=== PATIENT | male | born 1990 | race African-American/Black ===

== ENCOUNTER 2025-11-17 18:45 | Emergency (ER) | payer OTHER, SELFPAY ==
--- OUTSIDE RECORDS SUMMARY | 2023-08-28 10:47 | XMS_ITS | Continuity of Care Document ---
Author Organization [facility] ([facility]) Encounters Encounter Type Service Location Arrival/Admit Date Discharge/Depart Date Discharge Disposition Informant Emergency department visit for the evaluation and management of a patient, high severity Unknown 08/28/2023 15:47:02 [facility] - - [facility] Problem List Start Date End Date Condition Code Condition Name Condition Text Problem Category Problem Text Status Informant - - - LFT KNEE PAIN LFT KNEE PAIN - encounter -diagnosi s [facility]
--- OUTSIDE RECORDS SUMMARY | 2025-05-16 01:30 | XMS_ITS | Encounter Summary ---
Author Name [facility] [facility] [place] [facility] [place] Address [address] [place] [address] Care Team Providers Care Cardiology Nurse Practitioner Name Role Phone ADOLPH TATE Primary Care Provider DOMO Holt Primary Care Provider Yarely acosta Selected Encounter This section includes the information on record at [place] for the Encounter. Date/Time Encounter Type Encounter Description Reason Provider Source May 16, 2025 06:30 AM EMERGENCY DEPT VISIT [facility] EMERGENCY DEPT ICD-10-CM R22.31 Localized swelling, mass and lump, right upper limb POWERS,JIN E IHE Encounter Template Text not used by [place] Assessments - Encounter Diagnoses This section includes the primary and secondary diagnoses documented for the Encounter. Date/Time Primary/Secondary Diagnosis Diagnosis Name Provider Source May 16, 2025 08:03 AM PRIMARY Localized swelling, mass and lump, right upper limb POWERS,JIN E HARRY GUERRA [facility] Plan of Treatment: Future Appointments (+ 6 months) and Future Tests (+/- 45 days) The Plan of Treatment section includes future care activities for the patient from all [place] treatmentfacilities. This section includes future appointments and future orders which are active, pending or scheduled. Future Appointments This section includes appointments that were scheduled to occur 6 months from the date of the Encounter, up to a maximum of 20 appointments. The data comes from all [place] treatment facilities. Appointment Date/Time Appointment Type Appointme nt Facility Name May 17, 2025 10:15 AM AMBULATORY - MEDICINE [facility] Jun 01, 2025 12:30 PM AMBULATORY - MEDICINE [facility] Jul 28, 2025 01:30 PM AMBULATORY - SURGERY [facility] Sep 02, 2025 09:00 AM AMBULATORY [facility] Sep 08, 2025 01:30 PM AMBULATORY - SURGERY [facility] Vital Signs: All taken on the encounter date This section contains inpatient and outpatient Vital Signs collected on the date of the Encounter. Date/Time Temperature Pulse Blood Pressure Respiratory Rate SP02 Pain Height Weight Body Mass Index Source May 16, 2025 06:35 AM 8 [facility] May 16, 2025 06:28 AM 97 F 77 /min 138/93 mm[Hg] 18 /min 97 % 7 66 in 206 lb 33 [facility] Advance Directives: All historical and current Section Date Range: From patient's date of to the date document was created. This section includes ALL of a patient's completed or amended [place] Advance and Rescinded Directives. The entries below indicate that a directive exists for the patient, but an actual copy is not included with this document. The data comes from all [facility]. Date Advance Directives Provider Source Dec 13, 2022 ADVANCE DIRECTIVE DISCUSSION LAMBERTO TAMAYO [facility] Jan 31, 2020 ADVANCE DIRECTIVE DISCUSSION ALEXUS ROSSI [facility] Radiology Reports: +/- 30 days of the encounter Radiology Reports For cases when an order for radiology services may have been completed prior to the date of the Encounter, the report list includes the Radiology Reports that were completed up to 30 days before dateof the Encounter. For cases when an order for radiology services may have been completed after the date of the Encounter, the report list also includes the Radiology Reports that were completed up to30 days after date of the Encounter. The data comes from all [place] treatment facilities. Date/Time Radiology Report Provider Source May 17, 2025 11:22 AM WRIST: RIGHT (3 EWS): TEJA MERRILL [id number] -1990 M Exm Date: MAY 17, 2025@11:22 Req Phys: TIMO GREEN Loc: [facility]-EMERGENCY DEPARTMENT (Req' Img Loc: [facility]-RADIOLOGY Service: Unknown [facility] [place] [address] (Case [id number] COMPLETE)WRIST: RIGHT (3 VIEWS) (RAD Detailed) CPT:52962 Reason for Study: SEE BELOW: Clinical History: 1.FIRST PROVIDE CLINICAL HX and REASON FOR EXAM (LIMIT 240 Chars)>>> atraumatic wrist pain/swelling 2.ORDERING PROVIDER: NAME: TIMO GREEN SERVICE/SECTION: EMERGENCY MEDICINE PHONE EXT: [phone] [place] PAGER: ONEIDA PAGER: OTHER PAGER(S): 3.IF YOU WILL NOT BE AVAILABLE and/or another physician should also receive the results please enter the additional contact information below: PATIENT'S PRIMARY PHYSICIAN: pager: phone: DEFER To Radiologist for final protocol?....: Yes Examples: Contrast VS Non-Contrast, Left VS Right, correct body parts, correct modality, and any other relevant protocol details. [ ] Check this box if you authorize radiology staff to review the results of this study with the patient prior to results being reported back to you. * ALL INFO IS MANDATORY Incomplete requests are automatically cancelled. Report Status: Verified Date Reported: MAY 17, 2025 Date Verified: MAY 17, 2025 Joint Finisher E-Sig:/ES/ROHIT WILKINS MD. Report: Comparison: 11/11/23 TECHNIQUE: AP, lateral and oblique views of the right wrist submitted FINDINGS: Same as impression Impression: Soft tissue swelling, predominantly over the ulnar styloid process and medial aspect of the wrist joint. Minimal cortical irregularity of ulnar styloid process and lateral aspect of the scaphoid bone may indicate early erosive change. Recommend clinical correlation. 4 mm well-defined radiolucency of triquetrum, possible intraosseous ganglion. No other bony lesions. No acute fracture. No malalignment. Primary Diagnostic Code: SIGNIFICANT ABNORMALITY, ATTN NEEDED Primary Interpreting Staff: ROHIT WILKINS MD., ATTENDING RADIOLOGIST (Joint Finisher) /ROHIT BAI [facility] Encounter Notes: All associated encounter notes This section contains the clinical notes associated to the Encounter. Date/Time Encounter Note(s) Provider Source May 16, 2025 07:58 AM EMERGENCY DEPT NOT E: LOCAL TITLE: EMERGENCY DEPT FAST TRACK NOTE STANDARD TITLE: EMERGENCY DEPT NOTE DATE OF NOTE: MAY 16, 2025@07:58 ENTRY DATE: MAY 16, 2025@07:58:10 AUTHOR: JIN POWERS COSIGNER: URGENCY: STATUS: COMPLETED RN and Triage Notes Reviewed Patient or surrogate has given consent for examinations, including labs, imaging, other diagnostic procedures. Consent is otherwise implied in an emergent clinical situation CHIEF COMPLAINT: ganglion cyst HPI: 34M RHD with R wrist lump x couple weeks. went to [place] and informed ganglion cyst. requesting that it be removed as causing more pain. no systemic symptoms able to move wrist w/o difficulty no hand pain SOCIAL Hx/FAMILY Hx, if applicable: PMHx: ACTIVE PROBLEMS Moderate recurrent major depression Exposure to potentially hazardous s Gout Wrist pain Pain of bilateral knee regions MEDS:Active Outpatient Medications (excluding Supplies): No Medications Found REMOTE MEDS, if applicable: No Active Remote Medications for this patient OTC / SUPPLEMENTAL / NON-VA MEDS, if applicable: ALLERGIES: Patient has answered NKA VITALS: T: 97 F [36.1 C] (05/16/2025 06:28) P: 77 (05/16/2025 06:28) R: 18 (05/16/2025 06:28) BP:138/93 (05/16/2025 06:28) Pain: 8 (05/16/2025 06:35) Pulse Ox: 97% (05/16/2025 06:28) Ht: 66 in [167.6 cm] (05/16/2025 06:28) Wt: 206 lb [93.44 kg] (05/16/2025 06:28) BMI:33.3 PHYSICAL EXAM: GEN: Well-appearing, no apparent distress RUE: elbow/wrist/full ROM, no effusion, no ttp hand SILT to median/radial/ulnar n. dist thumbs up, opposition, finfer crossing intact dorsal aspect ~ 2 cm from wrist with flucutulant mass. no warmth/no erythema. some tenderness a/p 34M RHD with Right ganglion cyst x several weeks. no e/o abscess. After d/w patient regarding options he is requesting that it be aspirated for comfort. aspiration performed w/o complication. Will refer to hand surgery to consider excision. Procedure: Consent Verbal Prep: Chloraprep Anesthesia: Lidocaine 1% with epi 0.5 cc After prep/anesthesia 18 gauge needle was inserted into are of fluctulance with 1 cc clear fluid aspirated bandaid applied with MARY wrap /es/ JIN POWERS M.D. EMERGENCY MEDICINE ATTENDING PHYSICIAN Signed: 05/16/2025 14:11 JIN POWERS [facility] May 16, 2025 06:31 AM TRIAGE NOTE: LOCAL TITLE: EMERGENCY DEPT NURSING TRIAGE NOTE STANDARD TITLE: TRIAGE NOTE DATE OF NOTE: MAY 16, 2025@06:31 ENTRY DATE: MAY 16, 2025@06:31:10 AUTHOR: SCOTTY MILLER EXP COSIGNER: URGENCY: STATUS: COMPLETED Emergency Department/Urgent Care Center Triage Patient age:34 Sex in chart: MALE Mode of Arrival: Self Mode of Mobility: * Walk Chief Complaint: worsening pain/ ganglion cyst to R wrist for the past 24 hours. packing tractor machine operator Note (Subjective/Objective): Pt presents to the ED with the above complaint,states he's been taking tylenol with little to no relief,wrist brace in placed for comfort,AOx4,ambulatory,no distress.Denies n/v/d,fever and chills. Level of Consciousness (AVPU): Alert = Appears aware of and responsive to the environment on their own. Follows commands, opens eyes spontaneously, and tracks objects. Vital Signs: Vital signs previously recorded this visit: T: 97 F [36.1 C] (05/16/2025 06:28) P: 77 (05/16/2025 06:28) R: 18 (05/16/2025 06:28) BP: 138/93 (05/16/2025 06:28) Pain: 7 (05/16/2025 06:28) Pulse Ox: 97% (05/16/2025 06:28) National Early Warning Score (NEWS): The NEWS total is 0. 1. Temperature (C/F): Score = 0 36.1 - 38.0 C (96.9 - 100.4 F) 2. Pulse: Score = 0 51-90 3. Respirations: Score = 0 12-20 4. Blood Pressure (Only Systolic BP, mmHg): Score = 0 111-219 5. Pulse Oximetry: Score = 0 96% or greater 6. Supplemental oxygen in use: Score = 0 No 7. AVPU: Score = 0 Alert Pain: DVPRS Scale Location: right wrist Defense and Veterans Pain Rating Scale (DVPRS): 8 Awful, hard to do anything Pain Score: 8 Patient's acceptable pain goal: 0 No pain Suicide Screen: [place] Suicide Severity Rating Scale (C-SSRS) screener 1. Over the past month, have you wished you were or wished you could go to sleep and not wake up? No 2. Over the past month, have you had any actual thoughts of killing yourself? No 3. Over the past month, have you been thinking about how you might do this? Response not required due to responses to other questions. 4. Over the past month, have you had these thoughts and had some intention of acting on them? Response not required due to responses to other questions. 5. Over the past month, have you started to work out or worked out the details of how to kill yourself? Response not required due to responses to other questions. 6. If yes, at any time in the past month did you intend to carry out this plan? Response not required due to responses to other questions. 7. In your lifetime, have you ever done anything, started to do anything, or prepared to do anything to end your life (for example, collected pills, obtained a gun, gave away valuables, went to the roof but didn't jump)? No 8. If YES, was this within the past 3 months? Response not required due to responses to other questions. Emergency Severity Index (ELLE) level: Level 4 Previously documented allergies: Patient has answered NKA Current Problems: ACTIVE PROBLEMS Moderate recurrent major depression Exposure to potentially hazardous s Gout Wrist pain Pain of bilateral knee regions /es/ SCOTTY MILLER BSN,RN EMERGENCY DEPARTMENT Signed: 05/16/2025 06:36 SCOTTY MILLER [facility]
--- OUTSIDE RECORDS SUMMARY | 2025-05-17 05:15 | XMS_ITS | Encounter Summary ---
Author Name [facility] [place] [facility] [place] Organization [facility] [place] Address [address], [place] [address] Care Team Providers Care Metal Fabricating Inspector Name Role Phone ADOLPH TATE Primary Care Provider DOMO Holt Primary Care Provider Yarely acosta Selected Encounter This section includes the information on record at [place] for the Encounter. Date/Time Encounter Type Encounter Description Reason Provider Source May 17, 2025 10:15 AM [facility] DEPT [facility] ICD-10-CM M25.539 Pain in unspecified wrist TIMO VARGAS Encounter Template Text not used by [place] Assessments - Encounter Diagnoses This section includes the primary and secondary diagnoses documented for the Encounter. Date/Time Primary/Secondary Diagnosis Diagnosis Name Provider Source May 17, 2025 12:35 PM PRIMARY Pain in unspecified wrist TIMO VARGAS [facility] Plan of Treatment: Future Appointments (+ 6 months) and Future Tests (+/- 45 days) The Plan of Treatment section includes future care activities for the patient from all [place] treatmentfacilities. This section includes future appointments and future orders which are active, pending or scheduled. Future Appointments This section includes appointments that were scheduled to occur 6 months from the date of the Encounter, up to a maximum of 20 appointments. The data comes from all [place] treatment facilities. Appointment Date/Time Appointment Type Appointme nt Facility Name Jun 01, 2025 12:30 PM AMBULATORY - MEDICINE [facility] Jul 28, 2025 01:30 PM AMBULATORY - SURGERY [facility] Sep 02, 2025 09:00 AM AMBULATORY [facility] Sep 08, 2025 01:30 PM AMBULATORY - SURGERY [facility] Vital Signs: All taken on the encounter date This section contains inpatient and outpatient Vital Signs collected on the date of the Encounter. Date/Time Temperature Pulse Blood Pressure Respiratory Rate SP02 Pain Height Weight Body Mass Index Source May 17, 2025 10:36 AM 98.7 F 60 /min 151/91 mm[Hg] 18 /min 100 % 10 210.5 lb 34 [facility] Advance Directives: All historical and current Section Date Range: From patient's date of to the date document was created. This section includes ALL of a patient's completed or amended [place] Advance and Rescinded Directives. The entries below indicate that a directive exists for the patient, but an actual copy is not included with this document. The data comes from all [place] facilities. Date Advance Directives Provider Source Dec 13, 2022 ADVANCE DIRECTIVE DISCUSSION LAMBERTO TAMAYO [facility] Jan 31, 2020 ADVANCE DIRECTIVE DISCUSSION ALEXUS ROSSI [facility] Radiology Reports: +/- 30 days of the [...] the Encounter. The data comes from all [place] treatment facilities. Date/Time Radiology Report Provider Source May 17, 2025 11:22 AM WRIST: RIGHT (3 EWS): TEJA MERRILL [id number] -1990 M Exm Date: MAY 17, 2025@11:22 Req Phys: TIMO VARGAS Loc: [facility]-EMERGENCY DEPARTMENT (Req' Img Loc: [facility]-RADIOLOGY Service: Unknown [facility] [place] [address] (Case [id number] COMPLETE)WRIST: RIGHT (3 VIEWS) (RAD Detailed) CPT:64119 Reason for Study: SEE BELOW: Clinical History: 1.FIRST PROVIDE CLINICAL HX and REASON FOR EXAM (LIMIT 240 Chars)>>> atraumatic wrist pain/swelling 2.ORDERING PROVIDER: NAME: TIMO VARGAS SERVICE/SECTION: EMERGENCY MEDICINE PHONE EXT: [phone] [place] PAGER: ONEIDA PAGER: OTHER PAGER(S): 3.IF YOU [...] 17, 2025 Date Verified: MAY 17, 2025 Script Girl E-Sig:/ES/MEL WILKINS MD. Report: Comparison: 11/11/23 TECHNIQUE: AP, [...] SIGNIFICANT ABNORMALITY, ATTN NEEDED Primary Interpreting Staff: MEL WILKINS MD., ATTENDING RADIOLOGIST (Script Girl) /MEL BAI [facility] Encounter Notes: All associated encounter notes This section contains the clinical notes associated to the Encounter. Date/Time Encounter Note(s) Provider Source May 17, 2025 11:15 AM EMERGENCY DEPT NOT E: LOCAL TITLE: EMERGENCY DEPT MEDICATIONS STANDARD TITLE: EMERGENCY DEPT NOTE DATE OF NOTE: MAY 17, 2025@11:15 ENTRY DATE: MAY 17, 2025@11:15:09 AUTHOR: MARI MULLINS EXP COSIGNER: URGENCY: STATUS: COMPLETED Date and Time Med/IV Given: Apr@11:15 Medication/IV Fluid: toradol Dose/Rate: 15 Unit of Measure: Mg Route: IM /es/ Mari Mullins RN, BSN REGISTERED NURSE Signed: 05/17/2025 11:15 MARI MULLINS [facility] May 17, 2025 10:42 AM EMERGENCY DEPT NOT E: LOCAL TITLE: EMERGENCY DEPT FAST TRACK NOTE STANDARD TITLE: EMERGENCY DEPT NOTE DATE OF NOTE: MAY 17, 2025@10:42 ENTRY DATE: MAY 17, 2025@10:42:30 AUTHOR: TIMO VARGAS EXP COSIGNER: URGENCY: STATUS: COMPLETED RN and Triage Notes Reviewed Pt gave consent for the examinations (including labs, imaging, other diagnostic procedures) herein included Patient PPE during exam: Surgical mask Provider PPE during exam: Surgical mask, gloves CHIEF COMPLAINT: Right wrist pain HPI: 34-year-old male with PMH of gout presenting today for persistent right- sided wrist pain. He was recently diagnosed at [place] with ganglion cyst. He was then seen in this department and cyst aspiration was performed. He states that since that time his wrist pain has persisted and possibly worsening. He feels pain spreading throughout the wrist joint which is severely limiting his range of motion. No noted trauma. No redness or skin changes noted. He does feel that there is a mild amount of swelling. He has been using Tylenol and Eric wrap as recommended. PMHx: ACTIVE PROBLEMS Moderate recurrent major depression Exposure to potentially hazardous s Gout Wrist pain Pain of bilateral knee regions PSHx: Non-contributory FHx: Non-contributory SHx: 03/30/2024 Negative - Has No Housing Concerns Negative - Has Stable Housing MEDS (All medications have been reconciled with the patient including OTC and CAM Medications): Active Outpatient Medications (excluding Supplies): No Medications Found MEDICATION RECONCILLATION: I have reviewed the patient's outpatient medication with the patient/caregiver and the list above accurately reflects the medications that the patient is currently taking including any that may be provided from non-VA sources, over the counter medications, nutritional or other supplements ALLERGIES: Patient has answered NKA PHYSICAL EXAMINATION T:98.7 F [37.1 C] (05/17/2025 10:36) BP:151/91 (05/17/2025 10:36) HR:60 (05/17/2025 10:36) R:18 (05/17/2025 10:36) O2 Sat:100% (05/17/2025 10:36) PHYSICAL EXAMINATION: GEN: Well apearing, NAD HEENT: conjunctiva clear Neck: supple, no masses Chest: Unlabored respirations CV: Normal perfusion Ext: Right wrist with no gross deformity. 1.5X 1.5 cm nodular mass on the ulnar aspect of the wrist with overlying punctate scar from recent procedure. No surrounding erythema or focal TTP in this area. Generalized soft tissue TTP, but no focal bony TTP. SI LT, 2+ radial pulse, intact TU/FC/okay. Possible very trace joint effusion versus soft tissue edema appreciated Neuro: Awake and alert, oriented to exam, clear speech, CLINICAL REMINDERS FINDINGS OUD and Naloxone Review (blank = negative screen) Most Recent Naloxone Prescription Information: No prior Naloxone prescription was found. XR R Wrist: Soft tissue swelling, predominantly over the ulnar styloid process and medial aspect of the wrist joint. Minimal cortical irregularity of ulnar styloid process and lateral aspect of the scaphoid bone may indicate early erosive change. Recommend clinical correlation. 4 mm well-defined radiolucency of triquetrum, possible intraosseous ganglion. No other bony lesions. No acute fracture. No malalignment. ED MEDICAL DECISION-MAKING/ED COURSE: 34-year-old man presenting today for persistent right-sided wrist pain. No evidence of fracture or dislocation based on my exam and imaging. Possibly due to his known ganglion cyst however he has significant pain with range of motion. Low concern for postprocedure cellulitis given no overlying skin changes. Concern for possible arthritis given his significant pain with ROM and soft tissue swelling appreciated on imaging. Most consistent with patient's known history of gout. Considered pseudogout, septic arthritis, and other inflammatory conditions. Offered patient wrist joint aspiration for further evaluation. He demonstrated capacity for decision-making and declined. He prefers to trial his usual gout regimen and monitor his own symptoms. Colchicine and indomethacin prescribed similar to patient's prior regimen. After discussion with shared decision making patient deemed to be stable for discharge with strict return precautions and close outpatient follow-up. All questions answered. Provided with pre-printed aftercare instructions upon discharge. ED DIAGNOSTIC IMPRESSION: wrist pain /es/ Timo Vargas MD EMERGENCY MEDICINE ATTENDING PHYSICIAN Signed: 05/17/2025 12:30 TIMO VARGAS [facility] May 17, 2025 10:39 AM TRIAGE NOTE: LOCAL TITLE: EMERGENCY DEPT NURSING TRIAGE NOTE STANDARD TITLE: TRIAGE NOTE DATE OF NOTE: MAY 17, 2025@10:39 ENTRY DATE: MAY 17, 2025@10:40:05 AUTHOR: RAFAL PETERSON EXP COSIGNER: URGENCY: STATUS: COMPLETED Emergency Department/Urgent Care Center Triage Patient age:34 Sex in chart: MALE Mode of Arrival: Self Mode of Mobility: * Walk Chief Complaint: follow-up from yesterday s/p drainage to ganglion cyst. 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 Follows commands, opens eyes spontaneously, and tracks objects. Vital Signs: Vital signs previously recorded this visit: T: 98.7 F [37.1 C] (05/17/2025 10:36) P: 60 (05/17/2025 10:36) R: 18 (05/17/2025 10:36) BP: 151/91 (05/17/2025 10:36) Pain: 10 (05/17/2025 10:36) Pulse Ox: 100% (05/17/2025 10:36) National Early Warning Score (NEWS): The NEWS [...] = 0 Alert Pain: DVPRS Scale Location: arm Defense and Veterans Pain Rating Scale (DVPRS): Patient's acceptable pain goal: Suicide Screen: [place] Suicide Severity Rating Scale (C-SSRS) screener 1. [...] questions. Emergency Severity Index (ELLE) level: Level 3 Previously documented allergies: Patient has answered NKA Current Problems: ACTIVE PROBLEMS Moderate recurrent major depression Exposure to potentially hazardous s Gout Wrist pain Pain of bilateral knee regions /natalio/ RAFAL PETERSON, MSN, SUPERVISOR PRODUCT INSPECTION NURSE - EMERGENCY DEPT Signed: 05/17/2025 10:42 RAFAL PETERSON [facility]
--- OUTSIDE RECORDS SUMMARY | 2025-05-17 06:02 | XMS_ITS | Encounter Summary ---
Author Name [facility] [place] Organization [facility] [place] Address [address] [place] [address] Care Team Providers Care Boat Buffer Plastic Name Role Phone ADOLPH TATE Primary Care Provider DOMO Holt Primary Care Provider Yarely acosta Selected Encounter This section includes the information on record at MD for the Encounter. Date/Time Encounter Type Encounter Description Reason Provider Source May 17, 2025 11:02 AM Outpatient Encounter ADMIN PAT ACTIVTIES (MASNONCT) JIN POWERS Encounter Template Text not used by MD Plan of Treatment: Future Appointments (+ 6 months) and Future Tests (+/- 45 days) The Plan of Treatment section includes future care activities for the patient from all [place] treatmentfacilities. This section includes future appointments and future orders which are active, pending or scheduled. Future Appointments This section includes appointments that were scheduled to occur 6 months from the date of the Encounter, up to a maximum of 20 appointments. The data comes from all [place] treatment facilities. Appointment Date/Time Appointment Type Appointme nt Facility Name Jun 01, 2025 12:30 PM AMBULATORY - MEDICINE [facility] Jul 28, 2025 01:30 PM AMBULATORY - SURGERY [facility] Sep 02, 2025 09:00 AM AMBULATORY [facility] Sep 08, 2025 01:30 PM AMBULATORY - SURGERY [facility] Vital Signs: All taken on the encounter date This section contains inpatient and outpatient Vital Signs collected on the date of the Encounter. Date/Time Temperature Pulse Blood Pressure Respiratory Rate SP02 Pain Height Weight Body Mass Index Source May 17, 2025 10:36 AM 98.7 F 60 /min 151/91 mm[Hg] 18 /min 100 % 10 210.5 lb 34 [facility] Advance Directives: All historical and current Section Date Range: From patient's date of to the date document was created. This section includes ALL of a patient's completed or amended MD Advance and Rescinded Directives. The entries below indicate that a directive exists for the patient, but an actual copy is not included with this document. The data comes from all MD facilities. Date Advance Directives Provider Source Dec 13, 2022 ADVANCE DIRECTIVE DISCUSSION LAMBERTO TAMAYO [facility] Jan 31, 2020 ADVANCE DIRECTIVE DISCUSSION ALEXUS ROSSI [facility] Radiology Reports: +/- 30 days [...] the Encounter. The data comes from all MD treatment facilities. Date/Time Radiology Report Provider Source May 17, 2025 11:22 AM WRIST: RIGHT (3 EWS): TEJA MERRILL [id number] -1990 M Exm Date: MAY 17, 2025@11:22 Req Phys: TIMO GREEN Pat Loc: [facility]-EMERGENCY DEPARTMENT (Req' Img Loc: [facility]-RADIOLOGY Service: Unknown [facility] [place] [address] (Case [id number] COMPLETE)WRIST: RIGHT (3 VIEWS) (RAD Detailed) CPT:68431 Reason for Study: SEE BELOW: Clinical History: 1.FIRST PROVIDE CLINICAL HX and REASON FOR EXAM (LIMIT 240 Chars)>>> atraumatic wrist pain/swelling 2.ORDERING PROVIDER: NAME: TIMO GREEN SERVICE/SECTION: EMERGENCY MEDICINE PHONE EXT: [phone] MD PAGER: [facility] PAGER: OTHER PAGER(S): 3.IF YOU WILL NOT [...] 17, 2025 Date Verified: MAY 17, 2025 Technician Trainee E-Sig:/ES/ROHIT WILKINS MD. Report: Comparison: 11/11/23 TECHNIQUE: [...] Interpreting Staff: ROHIT WILKINS MD., ATTENDING RADIOLOGIST (Technician Trainee) /ROHIT BAI [facility] Encounter Notes: All associated encounter notes This section contains the clinical notes associated to the Encounter. Date/Time Encounter Note(s) Provider Source May 17, 2025 11:02 AM LETTERS: LOCAL TITLE: APPOINTMENT SCHEDULING LETTER AUTO PRINT STANDARD TITLE: LETTERS DATE OF NOTE: MAY 17, 2025@11:02 ENTRY DATE: MAY 17, 2025@11:02:48 AUTHOR: YAZMIN MCGEE EXP COSIGNER: URGENCY: STATUS: COMPLETED MAY 17, 2025 Dear TEJA MERRILL, We have received an appointment request for you in the clinic listed below and would like to schedule your appointment for you as soon as possible. Clinic: [facility]ORTHOPEDICS If you have already scheduled an appointment with this service, please disregard this letter We attempted to contact you by phone, but unfortunately we were not able to reach you. Please contact our office between the hours of 8:00am to 4:00pm toll free at [place] [phone]. If we do not hear from you within 14 days of the date of this letter, we will cancel your appointment request and offer the appointment to another . If you feel you need to be seen after the 14 days have passed for the service in question, please reach out and we would be happy to coordinate your care. PLEASE NOTE: Prescriptions may not be given unless you are seen by a MD Provider. We want to thank you for choosing the [facility] to be your healthcare provider. We appreciate the opportunity to serve your healthcare needs. If at any time, you do not feel safe and need urgent care, you may call 911, go to the nearest emergency room, or call the [place] Crisis Line at [phone]. Sincerely, [place] [address] [place] [address] UMAIR MCGEE [facility] [place]
--- OUTSIDE RECORDS SUMMARY | 2025-05-30 08:16 | XMS_ITS | Encounter Summary ---
Author Name [facility] [place] Organization [place] Address [address] [place] [address] Care Team Providers Care Slice Cutting Machine Operator Helper Name Role Phone ADOLPH TATE Primary Care Provider DOMO Holt Primary Care Provider Yarely acosta Selected Encounter This section includes the information on record at [place] for the Encounter. Date/Time Encounter Type Encounter Description Reason Pro vider Source May 30, 2025 01:16 PM Outpatient Encounter ADMIN PAT ACTIVTIES (MASNONCT) IHE Encounter Template Text not used by [place] Plan of Treatment: Future Appointments (+ 6 months) and Future Tests (+/- 45 days) The Plan of Treatment section includes future care activities for the patient from all [place] treatmentfacilities. This section includes future appointments and future orders which are active, pending or scheduled. Future Appointments This section includes appointments that were scheduled to occur 6 months from the date of the Encounter, up to a maximum of 20 appointments. The data comes from all [place] treatment facilities. Appointment Date/Time Appointment Type Appointme nt Facility Name Jun 01, 2025 12:30 PM [facility] Jul 28, 2025 01:30 PM [facility] [place] Sep 02, 2025 09:00 AM AM[facility]ULATORY [facility] Sep 08, 2025 01:30 PM [facility] Nov 30, 2025 09:30 AM AMB[facility]ORY - MEDICINE [facility] Advance Directives: All historical and current Section Date Range: From patient's date of to the date document was created. This section includes ALL of a patient's completed or amended [place] Advance and Rescinded Directives. The entries below indicate that a directive exists for the patient, but an actual copy is not included with this document. The data comes from all [place] facilities. Date Advance Directives Provider Source Dec 13, 2022 ADVANCE DIRECTIVE DISCUSSION LAMBERTO TAMAYO [facility] Jan 31, 2020 ADVANCE DIRECTIVE DISCUSSION ALEXUS ROSSI [facility] Radiology Reports: +/- 30 days [...] the Encounter. The data comes from all [place] treatment facilities. Date/Time Radiology Report Provider Source May 17, 2025 11:22 AM WRIST: RIGHT (3 EWS): JASPREET MERRILLUZIEL PHILLIPS [id number] -1990 M Exm Date: MAY 17, 2025@11:22 Req Phys: TIMO GREEN Loc: [facility]-EMERGENCY DEPARTMENT (Req' Img Loc: [facility]-RADIOLOGY Service: [place] [address] (Case [id number] COMPLETE)WRIST: RIGHT (3 VIEWS) (RAD Detailed) CPT:53856 Reason for Study: SEE BELOW: Clinical History: 1.FIRST PROVIDE CLINICAL HX and REASON FOR EXAM (LIMIT 240 Chars)>>> atraumatic wrist pain/swelling 2.ORDERING PROVIDER: NAME: TIMO GREEN SERVICE/SECTION: EMERGENCY MEDICINE PHONE EXT: [phone] [place] PAGER: [facility] PAGER: OTHER PAGER(S): 3.IF YOU WILL NOT [...] 17, 2025 Date Verified: MAY 17, 2025 [employer] E-Sig:/ES/ROHIT WILKINS MD. Report: Comparison: 11/11/23 TECHNIQUE: [...] Interpreting Staff: ROHIT WILKINS MD., ATTENDING RADIOLOGIST ([employer]) /ROHIT BAI [facility] Encounter Notes: All associated encounter notes This section contains the clinical notes associated to the Encounter. Date/Time Encounter Note(s) Provider Source May 30, 2025 01:16 PM PRIMARY CARE TELEP JAGDISH ENCOUNTER NOTE: LOCAL TITLE: PRIMARY CARE TELEPHONE NOTE STANDARD TITLE: PRIMARY CARE TELEPHONE ENCOUNTER NOTE DATE OF NOTE: MAY 30, 2025@13:16 ENTRY DATE: MAY 30, 2025@13:16:28 AUTHOR: EMERSON DUFFY EXP COSIGNER: URGENCY: STATUS: COMPLETED Time Spent with Patient/Caregiver on the telephone: 5 minutes Appointment date: 06/01/2025 12:30 SGV-PACT TEAM 4 Spoke with: [x]Willard []Manager Technical Training []Spouse []Family member []Other Visit Type: []Another attempt to call and confirm appointment will be made prior to scheduled appointment date. []3rd and Final attempt for appointment date/time confirmation was made [x]Willard will be able to attend appointment and verbalized understanding of instructions given. [x]Awsa-rr-evhd PCP Visit []Telephonic/VVC PCP visit []Cfir-yn-nlpl Nurse visit []Telephonic/VVC Nurse visit Topics of discussion with Willard: [x]Appointment date/time/location [x]Complete all fasting/non-fasting lab work within 1-2 weeks of upcoming appointment or on the day of the appointment if not already complete. []Other /natalio/ EMERSON DUFFY LICENSED VOCATIONAL NURSE Signed: 05/30/2025 13:17 EMERSON DUFFY [facility]
--- OUTSIDE RECORDS SUMMARY | 2025-06-01 07:30 | XMS_ITS | Encounter Summary ---
Author Name [facility] [place] Organization [place] Address [address] [place] [address] Care Team Providers Care Cattle Driver Name Role Phone ADOLPH TATE Primary Care Provider KLEVER Holt Primary Care Provider Yarely acosta Selected Encounter This section includes the information on record at [place] for the Encounter. Date/Time Encounter Type Encounter Description Reason Provider Source Jun 01, 2025 12:30 PM OFFICE O/P EST MOD 30 MIN PRIMARY CARE/MEDICINE ICD-10-CM M10.9 Gout, unspecified GRODECKI,GUIRL ETTE IHE Encounter Template Text not used by [place] Assessments - Encounter Diagnoses This section includes the primary and secondary diagnoses documented for the Encounter. Date/Time Primary/Secondary Diagnosis Diagnosis Name Provider Source Jun 01, 2025 01:44 PM PRIMARY Gout, unspecified GRODECKI,GUIRL ETTE [facility] Jun 01, 2025 01:44 PM SECONDARY Pain in left knee GRODECKI,GUIRL ETTE [facility] Jun 01, 2025 01:44 PM SECONDARY Pain in unspecified knee GRODECKI,IRL ETTE [facility] Jun 01, 2025 01:44 PM SECONDARY Pain in unspecified wrist GRODECKI,IRL ETTE [facility] Plan of Treatment: Future Appointments (+ 6 months) and Future Tests (+/- 45 days) The Plan of Treatment section includes future care activities for the patient from all [facility]. This section includes future appointments and future orders which are active, pending or scheduled. Future Appointments This section includes appointments that were scheduled to occur 6 months from the date of the Encounter, up to a maximum of 20 appointments. The data comes from all [facility]. Appointment Date/Time Appointment Type Appointme nt Facility Name Jul 28, 2025 01:30 PM AMBULATORY - SURGERY [facility] Sep 02, 2025 09:00 AM AMBULATORY [facility] Sep 08, 2025 01:30 PM AMBULATORY - SURGERY [facility] Nov 30, 2025 09:30 AM AM[facility]ULATORY - MEDICINE [facility] Social History: Smoking Status (Most current) and Tobacco Use (All prior to encounter date) This section includes the most current, and the historical, smoking and tobacco- related health factors from the [place] facility where the Encounter took place. Current Smoking Status This section includes the most current smoking, or tobacco-related health factor, from the [place] facility where the Encounter took place. Date/Time Current Smoking Status Comment Facil ity Jun 01, 2025 12:30 PM VA-TOBACCO NEVER U SED CIGARETTES [facility] Tobacco Use History This section includes a history of the smoking, or tobacco-related health factors, that were collected on or before the date of the Encounter. The data comes from the [place] facility where the Encounter took place. Date/Time Smoking Status/Tobacco Use Comment F acility Jun 01, 2025 12:30 PM VA-TOBACCO NEVER U SED OTHER TYPE [facility] Oct 09, 2023 02:00 PM VA-TOBACCO NEVER USED [facility] Advance Directives: All historical and current Section Date Range: From patient's date of to the date document was created. This section includes ALL of a patient's completed or amended [place] Advance and Rescinded Directives. The entries below indicate that a directive exists for the patient, but an actual copy is not included with this document. The data comes from all [facility]. Date Advance Directives Provider Source Dec 13, 2022 ADVANCE DIRECTIVE DISCUSSION LAMBERTO TAMAYO [facility] Jan 31, 2020 ADVANCE DIRECTIVE DISCUSSION ALEXUS ROSSI [facility] Radiology Reports: +/- 30 days [...] the Encounter. The data comes from all [place] treatment facilities. Date/Time Radiology Report Provider Source May 17, 2025 11:22 AM WRIST: RIGHT (3 EWS): TEJA MERRILL [id number] -1990 M Exm Date: MAY 17, 2025@11:22 Req Phys: TIMO GREEN Loc: [facility]-EMERGENCY DEPARTMENT (Req' Img Loc: [facility]-RADIOLOGY Service: [place] [address] (Case [id number] COMPLETE)WRIST: RIGHT (3 VIEWS) (RAD Detailed) CPT:40885 Reason for Study: SEE BELOW: Clinical History: 1.FIRST PROVIDE CLINICAL HX and REASON FOR EXAM (LIMIT 240 Chars)>>> atraumatic wrist pain/swelling 2.ORDERING PROVIDER: NAME: TIMO GREEN SERVICE/SECTION: EMERGENCY MEDICINE PHONE EXT: [phone] [place] PAGER: [facility] PAGER: OTHER PAGER(S): 3.IF YOU [...] 17, 2025 Date Verified: MAY 17, 2025 3D Modeler E-Sig:/ES/ROHIT WILKINS MD. Report: Comparison: 11/11/23 TECHNIQUE: [...] Interpreting Staff: ROHIT WILKINS MD., ATTENDING RADIOLOGIST (3D Modeler) /ROHIT BAI [facility] Encounter Notes: All associated encounter notes This section contains the clinical notes associated to the Encounter. Date/Time Encounter Note(s) Provider Source Jun 01, 2025 01:36 PM PRIMARY CARE NOTE: LOCAL TITLE: PRIMARY CARE NOTE STANDARD TITLE: PRIMARY CARE NOTE DATE OF NOTE: JUN 01, 2025@13:36 ENTRY DATE: JUN 01, 2025@13:36:16 AUTHOR: KLEVER TENA EXP COSIGNER: URGENCY: STATUS: COMPLETED CHIEF COMPLAINT: Follow-up for management of chronic medical conditions HPI: This is a 34 year old MALE who presents for follow-up History of gout, anxiety disorder/depression, chronic bilateral knee pain, right wrist pain. Note that the patient is still in the [employer] seen ED at [facility] 05/17/25 for with gout flare He also has a ganglion cyst on the left wrist which is painful. He has appointment with hand orthopedics in July at [facility] X-rays bilateral knees 11/11/2023 Mild bilateral patellofemoral degenerative change with slightly increased Insall Salvati ratio; query patella mary ann. Current visit: Lost weight about 10 pounds on his own since the last visit. Shared decision making/Plan of care: #Gout with recent flare 2 weeks ago He has had multiple flare ups in the past He is on allopurinol daily/colchicine as needed reviewed low purine diet at length, he is compliant with it Currently asymptomatic Will refer to rheum for further evaluation of recurrent gout attacks despite allopurinol and colchicine and low purine diet #Right wrist ganglion cyst He has appointment with Ortho hand in July 2025 #Patellofemoral syndrome See x-rays of bilateral knees above had physical therapy Continue NSAIDs/knee braces as needed #Chronic rt wrist pain Normal right wrist radiographs 11/11/2023. 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 He is also in the reserves States that the [place] only gives 4 months of mental health therapy and he plans to continue with [facility] after that #Obesity Patient was educated on lifestyle modification, healthy diet and exercise . Pt declined referral to [facility]/weight loss program at this time preferring to lose weight on his own. Goal to lose 5 to 10% of his weight in 6 months ===== MEDICAL HISTORY: GOUT anxiety/depression disorder rt wrist pain b/l knee pain Right wrist ganglion cyst SOCIAL HISTORY:updated Occupation:[employer]/teaching seventh grade Education: educator, going to graduate school Marital status: single, no children Residence: stable , no risk of homelessness ETOH:2X a week. wine 2-3 glasses a night,or sake 4 shots in an evening Smoking: never illicit Drugs:no Sexual Activity:yes, identifies as male. heterosexual. monogamous h/o gonnorhea in nov 2012-treated chlamydia 2 yrs ago-treated sexual practice: since nov 2022 wears condoms exercise: irregular diet: regular hobbies: plays video and board games, reading [employer] active duty [id number] job:[employer] currently in the [employer], signed up for 2 yrs toxic exposure: open burnpits in [facility] mst: no tbi;no trauma;no ptsd:no deployments: [facility], [place] FAMILY HISTORY: Mother:alive- had melanoma maternal GF had melanoma Father:alive. h/o sickle cell trait sibs: 1b, 1 s alive and well denies family diseases (CAD, CA, DM) Allergies/ADR: Patient has answered NKA MEDICATIONS: Active Outpatient Medications (excluding Supplies): ROS: - CONSTITUTIONAL: No weight loss, fever, chills, weakness or fatigue. - HEENT: No acute visual changes. - CARDIOVASCULAR: No chest pain, chest pressure or chest discomfort. No palpitations or edema. - RESPIRATORY: No shortness of breath, cough or sputum. - GASTROINTESTINAL: No abd pain/n/v - GENITOURINARY: No dysuria. - NEUROLOGICAL: No headache or focal neurologic changes. - MUSCULOSKELETAL: - SKIN: No rash or itching. - PSYCHIATRIC: No homicidal or suicidal ideations PE VS TEMP: 98.7 F [37.1 C] (06/01/2025 12:48) PULSE: 70 (06/01/2025 12:48) RESP: 14 (06/01/2025 12:48) BP: 114/80 (06/01/2025 12:48) HEIGHT: 66 in [167.6 cm] (05/16/2025 06:28) WEIGHT: 200 lb [90.72 kg] (06/01/2025 12:48) BMI: 32.3 PAIN: 1 (06/01/2025 12:48) GENERAL: alert, well appearing, and in no distress. HEAD: Atraumatic, normocephalic EYES: pupils equal and reactive, normal sclera. OROPHARYNX: mucous membranes moist, pharynx normal without lesions. NECK: supple, no significant adenopathy. HEART: normal rate, regular rhythm, no murmurs, rubs, or gallops. LUNGS: clear to auscultation bilaterally, no wheezes, rales or rhonchi ABDOMEN: soft, nontender, nondistended, non-peritonitic, no CVAT EXT: Right wrist swelling/ganglion cyst SKIN: normal coloration, no rashes. NEURO: alert, oriented, normal speech, no focal findings Outpt. Medication Reconciliation: MEDICATION REVIEW: - I have reviewed the EMLR including active/pending//non -VA remote medications and asked the patient about over the counter supplements and any new non-VA medications that have been added or removed from his medication list. - MEDICATION RECONCILIATION: - No Discrepancies identified - ACTION: Was medication education provided for new medications or changes to medications? (including medication name, dose, route, reason for use, and potential side effects). No new medications or medication changes during this encounter. /es/ Klever Tena MD Primary Care Physician Signed: 06/01/2025 13:44 KLEVER TENA [facility] Jun 01, 2025 12:50 PM NURSING NOTE: LOCAL TITLE: DRY BOX OPERATOR NURSING CLINIC STANDARD TITLE: NURSING NOTE DATE OF NOTE: JUN 01, 2025@12:50 ENTRY DATE: JUN 01, 2025@12:50:19 AUTHOR: EMERSON DUFFY EXP COSIGNER: URGENCY: STATUS: COMPLETED TEJA MERRILL is a 34 year old MALE CHIEF COMPLAINT/REASON FOR VISIT: regular annual f/u, and post ER visit VITALS: B/P: 114/80 (06/01/2025 12:48) Pulse: 70 (06/01/2025 12:48) Resp: 14 (06/01/2025 12:48) Temp: 98.7 F [37.1 C] (06/01/2025 12:48) Pain: 1 (06/01/2025 12:48) Height: 66 in [167.6 cm] (05/16/2025 06:28) Weight: 200 lb [90.72 kg] (06/01/2025 12:48) Patient's pain level today: 1 (06/01/2025 12:48) and is TOLERABLE. Pt/caregiver to inform Provider or Tele[facility] ( ) if pain becomes problematic. Is the pain related to today's visit? Yes Plan: Informed the Provider whom the pt. will be seeing today. Advance Directive Notification: ADVANCE DIRECTIVE NOTIFICATION/SCREENING Patient given written notification regarding advance directives including Your Rights Regarding Advance Directives and What You Should Know About Advance Directives. Patient screened about advance directive and: Patient has no advance directive Interested in learning more about advance directive? No Homelessness/Food Insecurity Screen: In the past 2 months, have you been living in stable housing that you own, rent, or stay in as part of a household? Yes - Living in stable housing. Are you worried or concerned that in the next 2 months you may NOT have stable housing that you own, rent, or stay in as part of a household? No - Not worried about housing near future The reports the following: Within the past 12 months, you worried whether your food would run out before you got money to buy more. Never true Within the past 12 months, the food you bought just didn't last and you didn't have money to get more. Never true Alcohol Use Screen (AUDIT-C): Alcohol Screen: SCREEN FOR ALCOHOL (AUDIT-C) An alcohol screening test (AUDIT-C) was negative (score=3). 1. How often did you have a drink containing alcohol in the past year? Consider a drink to be a 12 ounce can or bottle of regular beer, 8 ounces of malt liquor, a 5 ounce glass of table wine, or a 1.5 ounce shot of liquor (like scotch, gin, or vodka). Two to four times a month 2. How many drinks containing alcohol did you have on a typical day when you were drinking in the past year? One or two drinks 3. How often did you have six or more drinks on one occasion in the past year? Less than monthly Nursing Opt Pressure Ulcer Eval: Does the [place] have a current pressure ulcer (in the past year) or require use of a medical education coordinator (e.g. artificial limb braces, splints, implanted pump, automatic implanted cardioverter-defibrillator , oxygen tubing, indwelling or condom catheter, tracheostomy, feeding tube)? No Is in a wheelchair or on a gurney? No [place] is NEGATIVE for pressure ulcer risk. Tobacco Use Screening: The patient has never smoked cigarettes. The patient has never used other types of tobacco. Abuse/Neglect Screening: In the last year, have you been worried about being abused (physically, sexually, emotionally, financially) or neglected? - NO /es/ EMERSON DUFFY LICENSED VOCATIONAL NURSE Signed: 06/01/2025 12:55 EMERSON DUFFY [facility]
--- OUTSIDE RECORDS SUMMARY | 2025-11-09 03:30 | XMS_ITS | Encounter Summary ---
Author Name [facility] [facility] Address [address] [place] [address] Care Team Providers Care Immigration Guard Name Role Phone ADOLPH TATE Primary Care Provider DOMO Holt Primary Care Provider Yarely acosta Selected Encounter This section includes the information on record at [place] for the Encounter. Date/Time Encounter Type Encounter Description Reason Pro vider Source Nov 09, 2025 08:30 AM Outpatient Encounter RHEUMATOLOGY/ARTHRITI S IHE Encounter Template Text not used by [place] Plan of Treatment: Future Appointments (+ 6 months) and Future Tests (+/- 45 days) The Plan of Treatment section includes future care activities for the patient from all [place] treatmentfacilities. This section includes future appointments and future orders which are active, pending or scheduled. Future Appointments This section includes appointments that were scheduled to occur 6 months from the date of the Encounter, up to a maximum of 20 appointments. The data comes from all [place] treatment facilities. Appointment Date/Time Appointment Type Appointme nt Facility Name Nov 30, 2025 09:30 AM AMBULATORY - MEDICINE LAOP C Active, Pending, and Scheduled Orders This section includes a listing of several types of active, pending, and scheduled orders, including clinic medications orders, diagnostic test orders, procedure orders and consult orders; where the start date of the order is 45 days before the date of the Encounter or 45 days after the date of theEncounter. The data comes from all [place] treatment facilities. Test Date/Time Test Type Test Details Facility Name Oct 06, 2025 04:20 PM Consult Order RADHA [facility] [place] -([facility]) [place] [facility] [employer] [facility] [place]: All historical and current Section Date Range: From patient's date of to the date document was created. This section includes ALL of a patient's completed or amended [place] Advance and Rescinded Directives. The entries below indicate that a directive exists for the patient, but an actual copy is not included with this document. The data comes from all [place] facilities. Date Advance Directives Provider Source Dec 13, 2022 ADVANCE DIRECTIVE DISCUSSION LAMBERTO TAMAYO [facility] Jan 31, 2020 ADVANCE DIRECTIVE DISCUSSION ALEXUS ROSSI [facility] Encounter Notes: All associated encounter notes This section contains the clinical notes associated to the Encounter. Date/Time Encounter Note(s) Provider Source Nov 07, 2025 02:10 PM TELEPHONE ENCOUNTE R NOTE: LOCAL TITLE: TELEPHONE NOTE STANDARD TITLE: TELEPHONE ENCOUNTER NOTE DATE OF NOTE: NOV 07, 2025@14:10 ENTRY DATE: NOV 07, 2025@14:11:42 AUTHOR: BRANDON OLIVA EXP COSIGNER: URGENCY: STATUS: COMPLETED Time Spent with Patient/Caregiver on the telephone: /4/ minutes Rheumatology appt on 11/09/2025 at 0830 Called and spoke to pt to remind him of his scheduled appt above. Pt said that he can't make it to his appt and would like to re-schedule the appt. We'll notify [facility] to call pt to re-schedule pt appt. /natalio/ MAKENZIE [facility] Signed: 11/07/2025 14:15 Receipt Acknowledged By: 11/08/2025 12:40 /natalio/ Christina Braga MD [facility]ATOLOGY [facility]
--- NOTE | ~2025-11-17 | CT_ITS ---
CLINICAL HISTORY: Abd pain; + rebound; + mcburney pt tenderness CT abdomen and pelvis with contrast Comparison: None provided Findings: The lung bases are clear. The liver, gallbladder, spleen, pancreas, kidneys and adrenal glands are normal in appearance. No bowel obstruction, pneumoperitoneum, or pneumatosis. Small fat containing umbilical hernia. Pelvic contents unremarkable. Normal appendix. Mild thickening of the urinary bladder wall. The bones are intact. IMPRESSION: No acute findings. Normal appendix. Mild thickening of the urinary bladder wall which could represent cystitis versus underdistention artifact. This document has been electronically signed by: Dayne Henry MD on 11/18/2025 02:55:58
[2025-11-17 18:47] VITALS: BP 154/98; PULSE 90; RESP 20; TEMP 36.4; O2SAT 95; BMI 33.1
--- NOTE | 2025-11-17 18:48 | ED_ITS ---
HPI - Abdominal Pain General Chief Complaint: Abdominal Pain Stated Complaint: intestinal pain, Time Seen by Provider: 11/17/25 23:48 Source: patient Mode of arrival: ambulatory Limitations: no limitations History of Present Illness ED Provider: Kayode SCHAFER HPI narrative: The patient is a 35-year-old male who presents to the Emergency Department accompanied by his mother, Samara, for evaluation of abdominal pain that began earlier today. The pain started this morning after he awoke, initially mild, then progressively worsened throughout the day. He reports the pain is in the periumbilical area, ?behind the belly button,? sometimes migrating towards the right, but does not radiate to the back. Patient denies any tearing sensation. Patient describes the pain as aching, with nausea and diarrhea but denies associated hematochezia, melena, or hematemesis. The patient denies associated chest pain, shortness of breath, fever/chills, recent sick contacts, or recent trauma. The patient reports last night he thought he was experiencing a gout flare in the right knee, for which he took colchicine, indomethacin, and acetaminophen. Patient reports those symptoms have improved, reports taking similar medication regimens for previous gout flares without associated abdominal pain. The patient denies any surgical abdominal history. Related Data Allergies Allergy/AdvReac Type Severity Reaction Status Date / Time No Known Allergies Allergy Verified 11/17/25 18:51 Review of Systems Review of Systems Yes all other systems are reviewed and are negative PMFSH Social History Social History Alcohol intake: current Smoked in Last 30 Days: No Use of substances other than those prescribed or required for medical reasons: No Advance Directives: No Advance Directives Information Provided: Yes Do you have a plan to hurt others: No Plan Physical Exam ED Vital Signs: Vital Signs - 24 hr 11/17/25 18:47 11/18/25 01:13 Temperature 97.5 F 97.6 F Pulse Rate 90 66 Respiratory Rate 20 16 Blood Pressure 154/98 H 128/89 Pulse Oximetry 95 96 Oxygen Delivery Method Room Air Room Air BMI result Body Mass Index 33.1 CONSTITUTIONAL: The patient appears non-toxic, well nourished and in no acute distress. Vital signs as documented. HEAD: Atraumatic, normocephalic. EYES: EOMs grossly intact, pupils equal, conjunctiva clear, no exudate. ENT: Nares patent, no discharge. Airway patent, no audible stridor, visible mucosa is pink and moist without noted lesions. NECK: Trachea is midline, no obvious masses or gross abnormalities. CHEST: Symmetric movement, normal appearance. LUNGS: LS present and CTAB, no w/r/r. Non-labored work of breathing. CARDIAC: Regular Rhythm, S1/S2 appreciated, no murmurs, rubs or gallops. ABDOMEN: Abdomen soft x4 quadrants, positive tenderness to palpation of the periumbilical region and right lower quadrant, positive rebound in the bilateral lower quadrants, negative Rovsing's. No palpable masses or organomegaly. : Deferred. EXTREMITIES: Normal tone, moves all extremities spontaneously without reported pain. No obvious acute injury or deformity noted. NEURO: Alert and oriented x3, CN II-XII appear grossly intact. Cerebellar Functioning grossly intact. No obvious sensory or motor deficits. Speech clear and appropriate. PSYCH: normal affect, appropriate eye contact, fluid speech, with appropriate response to questioning. No reported suicidality or homicidality. SKIN: Warm, dry, color appropriate, normal turgor. No rashes noted. Course Course Course Narrative: This is a Rapid Medical Exam performed in triage by Lilliana Garcia PA-C. Full HPI, ROS and PE to be performed by primary ED provider. 35-year-old male w/pmhx gout presenting to the ED c/o mid abdominal pain & nausea x this morning. denies vomiting, diarrhea, fever. Admits to taking colchicine and indomethacin this week PE: abdomen soft with epigastric tenderness. No rebound or guarding Plan: labs, UA Medical Decision Making Medical Decision Making MDM Narrative: 12:02 AM 11/18/2025 (Jere SCHAFER): The patient is a 35-year-old male who presents to the Emergency Department accompanied by his mother, Samara, for evaluation of abdominal pain that began earlier today. The pain started this morning after he awoke, initially mild, then progressively worsened throughout the day. He reports the pain is in the periumbilical area, ?behind the belly button,? sometimes migrating towards the right, but does not radiate to the back. Patient denies any tearing sensation. Patient describes the pain as aching, with nausea and diarrhea but denies associated hematochezia, melena, or hematemesis. The patient denies associated chest pain, shortness of breath, fever/chills, recent sick contacts, or recent trauma. The patient reports last night he thought he was experiencing a gout flare in the right knee, for which he took colchicine, indomethacin, and acetaminophen. Patient reports those symptoms have improved, reports taking similar medication regimens for previous gout flares without associated abdominal pain. The patient denies any surgical abdominal history. On exam patient is nontoxic appearing, however does have point tenderness of the periumbilical space and right lower quadrant, with positive rebound in the bilateral lower quadrants. Negative Rovsing's. The patient's laboratory evaluation shows mild leukocytosis of 11.8, no anemia or electrolyte abnormality. The patient's renal function demonstrates BUN 23, with a creatinine 1.67. Patient denies any known history of renal dysfunction. Due to elevated BUN we will fluid hydrate prior to obtaining a CT of the abdomen and pelvis to evaluate for acute appendicitis or other acute intra-abdominal pathology. Of note patient has mild transaminitis with AST 50, ALT 92, normal lipase, T bili, and alk phos. 3:11 AM 11/18/2025 (Jere SCHAFER): The patient's CT abdomen and pelvis shows no appendicitis, no other acute intra-abdominal pathology, there is note made of mild thickening of the urinary bladder wall, possibly concerning for cystitis versus under distention. We will obtain urinalysis, if urinalysis is unremarkable the patient is likely suffering from a viral gastroenteritis and will be discharged with supportive care. Patient has been made aware of his renal function in the ED, states he has been previously informed by his PCP of impaired renal function which requires monitoring but does not know previous values. We will provide patient's values from ED visit today in his discharge instructions to review with his PCP in [place]. 4:26 AM 11/18/2025 (Jere SCAHFER): The patient's urinalysis shows no evidence of infection, patient will be discharged. Admission/Observation Consideration of admission/observation: Escalation of care including admission/observation considered Lab Data MDM Lab Attestation statement: I reviewed the patient's lab results. 11/17/25 19:03 11/17/25 19:03 Labs: Lab Results 11/17/25 11/18/25 Range/Units 19:03 03:33 WBC 11.8 H (4.8-10.8) X10*3/uL RBC 5.46 (4.60-5.80) X10*6/uL Hgb 16.9 (14.0-18.0) g/dl Hct 46.5 (42.0-52.0) % MCV 85.2 (80.0-98.0) fL MCH 31.0 (27.0-33.0) pg MCHC 36.3 H (31.0-36.0) g/dl RDW 14.0 (11.0-16.0) % Plt Count 282 (160-400) X10*3/uL MPV 9.9 (9.4-12.4) fL Immature Gran % (Auto) 0.3 (0.0-0.4) % Neut % (Auto) 70.5 (45-73) % Lymph % (Auto) 18.9 L (20-40) % [place] % (Auto) 8.2 (2-11) % Eos % (Auto) 1.8 (0-4) % Baso % (Auto) 0.3 (0-2) % Lymph # (Auto) 2.2 (1.2-4.9) X10*3/uL [place] # (Auto) 1.0 (0.1-1.2) X10*3/uL Eos # (Auto) 0.2 (0.0-0.4) X10*3/uL Baso # (Auto) 0.0 (0.0-0.2) X10*3/uL Abs Immat Gran (auto) 0.04 H (0.00-0.03) X10*3/uL Absolute Neuts (auto) 8.3 (2.0-8.3) x10*3/uL Absolute Nucleated RBC 0.000 (0.0-0.012) X10*3/uL Nucleated RBC % (auto) 0.0 (0.0-0.2) /100WBC Sodium 143 (135-145) mmol/L Potassium 4.5 (3.3-5.1) mmol/L Chloride 107 (96-108) mmol/L Carbon Dioxide 27 (22-29) mmol/L Anion Gap 14 (12-20) BUN 23 H (9-16) mg/dL Creatinine 1.67 H (0.5-1.4) mg/dL Estim Creat Clear Calc 65.9 Estimated GFR 47 Random Glucose 101 (60-115) mg/dL Calcium 10.3 H (8.4-10.2) mg/dL Magnesium 2.1 (1.6-2.6) mg/dL Total Bilirubin 0.7 (0.0-1.0) mg/dL Direct Bilirubin 0.2 (0.0-0.5) mg/dL AST 50 H (5-37) U/L ALT 92 H (0-40) U/L Alkaline Phosphatase 110 (39-117) U/L Total Protein 8.3 H (6.5-8.0) g/dL Albumin 4.9 (3.5-5.0) g/dL Lipase 41 (8-78) U/L Urine Color Yellow Urine Appearance Clear Urine pH 5.5 (5.0-9.0) Ur Specific [place] >= 1.030 H (1.005-1.025) Urine Protein Negative (Neg-Trace) mg/dL Urine Glucose (UA) Negative (Negative) mg/dL Urine Ketones Negative (Negative) mg/dL Urine Blood Trace H (Negative) Urine Nitrite Negative (Negative) Ur Leukocyte Esterase Negative (Negative) Urine RBC 0-2 (0-2) /HPF Urine WBC 0-5 (0-5) /HPF Ur Squamous Epith Cells 0-2 (0-2) /HPF Urine Bacteria None Seen (None Seen) Hyaline Casts 3-5 (0-2) /LPF Radiology Impression Discussion of test interpretation with radiology: I have reviewed the radiologist's reading. Radiologist Impression: CT abdomen and pelvis with contrast Comparison: None provided Findings: The lung bases are clear. The liver, gallbladder, spleen, pancreas, kidneys and adrenal glands are normal in appearance. No bowel obstruction, pneumoperitoneum, or pneumatosis. Small fat containing umbilical hernia. Pelvic contents unremarkable. Normal appendix. Mild thickening of the urinary bladder wall. The bones are intact. IMPRESSION: No acute findings. Normal appendix. Mild thickening of the urinary bladder wall which could represent cystitis versus underdistention artifact. This document has been electronically signed by: Dayne Henry MD on 11/18/2025 02:55:58 External Record Review External record reviewed: Outpatient record Medications Administered Discontinued Medications Generic Name Dose Route Start Last Admin Trade Name Freq PRN Reason Stop Dose Admin Acetaminophen 975 mg 11/18/25 03:14 11/18/25 03:19 Acetaminophen 325 Mg Tablet PO 11/18/25 03:15 975 mg ONCE ONE Administration Sodium Chloride 1,000 mls @ 999 mls/hr 11/18/25 00:15 11/18/25 01:52 Ns IV 11/18/25 01:15 Infused .Q1H1M VASYL Infusion Iohexol 85 ml 11/18/25 01:52 11/18/25 02:00 Iohexol 350 Mg/Ml 100 Ml Infus..Btl IV 11/18/25 01:53 85 ml ONCE ONE Administration Discharge Plan Discharge Clinical Impression: Viral gastroenteritis Patient Disposition: Home, Self-Care Instructions: Acute Diarrhea (ED), Enteritis (ED) Additional Instructions: Thank you for choosing [facility]'s Emergency Department for your care today. Thankfully your laboratory evaluation, urinalysis, CT abdomen, exam, and vital signs today are reassuring. At this time there is no indication for admission to the hospital or continued ED observation, and it is safe to discharge you home. Your abdominal discomfort is likely due to a viral gastroenteritis of your small intestine. There was no evidence of urinary tract infection, appendicitis, small-bowel obstruction, or other emergent pathology. You should take alternating (staggered) doses of ibuprofen 600mg and Tylenol 1000mg every 4 hours as needed for any additional pain. Please stay well hydrated and get plenty of rest. Your laboratory evaluation today does show mildly abnormal kidney function which does not appear related to your pain today. Your BUN was 23, and your creatinine was 1.67. Seeing as you are not from the area, we do not have old lab values for comparison. It is extremely important that you follow up with the your primary care provider for re-evaluation, reassessment and comparison of these lab values to your previous blood work, additional management of your symptoms, and continued preventative care. If you do not have a primary care physician, please call the [facility] at [phone] to establish a new primary care physician. While waiting to establish your new primary care physician, you can call our [facility] at [phone] for non-emergency needs. Please return to the emergency department if you develop a severe or sudden change in your symptoms, a fever over 100.4 that does not improve with Tylenol or Ibuprofen, recurrent vomiting, or any other new or worsening symptoms or concerns. Print Language: Welsh
[2025-11-17 19:10] LABS: MANUAL DIFF FLAG NO
[2025-11-17 19:21] LABS: Hematocrit 46.5 % (42.0-52.0); Hemoglobin 16.9 g/dl (14.0-18.0); Imm Gran Abs Auto 0.04 X10*3/uL (0.00-0.03); Imm Gran Pct Auto 0.3 % (0.0-0.4); Lymphocytes Absolute Auto 2.2 X10*3/uL (1.2-4.9); Mean Corpuscular HGB Conc 36.3 g/dl (31.0-36.0); Mean Corpuscular Hemoglobin 31.0 pg (27.0-33.0); Mean Corpuscular Volume 85.2 fL (80.0-98.0); NRBC Abs Auto 0.000 X10*3/uL (0.0-0.012); NRBC Pct Auto 0.0 /100WBC (0.0-0.2); Platelet Count 282 X10*3/uL (160-400); Red Blood Count 5.46 X10*6/uL (4.60-5.80); White Blood Count 11.8 X10*3/uL (4.8-10.8)
[2025-11-17 19:27] LABS: Alanine Aminotransferase 92 U/L (0-40); Albumin Level 4.9 g/dL (3.5-5.0); Alkaline Phosphatase 110 U/L (39-117); Anion Gap 14 (12-20); Aspartate Amino Transferase 50 U/L (5-37); Blood Urea Nitrogen 23 mg/dL (9-16); Calcium 10.3 mg/dL (8.4-10.2); Carbon Dioxide 27 mmol/L (22-29); Chloride 107 mmol/L (96-108); Creatinine Clr Calc Pharmacy 65.9; Estimated Glomerular Filt Rate 47; Lipase 41 U/L (8-78); Magnesium 2.1 mg/dL (1.6-2.6); Potassium 4.5 mmol/L (3.3-5.1); Sodium 143 mmol/L (135-145); Total Protein 8.3 g/dL (6.5-8.0)
--- OUTSIDE RECORDS SUMMARY | 2025-11-17 23:57 | XMS_ITS | Continuity of Care Document ---
Author Name [facility] Organization [facility] Care Team Providers Care Dice Manager Name Role Phone [facility] Unavailable Unavailable Problems Combined list of problems from Department of Defense and Veterans Affairs facilities. It does not include entries that were removed or entered in error. Problem Status Onset Date Problem Type Date of Resolution Comments Source Adjustment disorder, unspecified Inactive 8 Condition DoD suicide risk Inactive 8 Condition DoD adjustment disorder with depressed mood Active 8 Condition [facility] adjustment disorder with anxiety and depressed mood Inactive 8 Condition [facility] lower back pain Active 7 Condition [facility] Anxiety Active Condition [facility] Exposure to potentially hazardous substance Active Condition [facility] Exposure to potentially hazardous substance ([facility] [id number]) Active Condition Mar 09 4 Entered By: VANDANA VARGAS Comment: CLAUDIA done:01/02/20 23 [facility] Gout Active Condition [facility] Gout (SCT [id number]) Active Condition [facility] Hyperhidrosis Active Condition [facility] Moderate recurrent major depression Active Condition [facility] Obstructive sleep apnea of adult Active Condition [facility] Pain of bilateral knee regions Active Condition [facility] Wrist pain Active Condition [facility] Other symptoms and signs involving emotional state Active Condition [facility] Irritability and anger Active Condition [facility] Adjustment disorder with depressed mood Active Condition [facility] Diagnosis: ICD-10-CM M25.569 Pain in unspecified knee Active Diagnosis [facility] Diagnosis: ICD-10-CM M25.531 Pain in right wrist Active Diagnosis [facility] Diagnosis: ICD-10-CM M10.9 Gout, unspecified Active Diagnosis [facility] Diagnosis: ICD-10-CM M25.539 Pain in unspecified wrist Active Diagnosis [facility] Diagnosis: ICD-10-CM R22.31 Localized swelling, mass and lump, right upper limb Active Diagnosis [facility] Diagnosis: ICD-10-CM F33.1 Major depressive disorder, recurrent, moderate Active Diagnosis [facility] Medications Combined list of outpatient medications from Department of Defense and Veterans Affairs facilities.Medications provided include 1) outpatient medications from the last 15 months, and 2) patient-reported medications. Medication Details Route Status Indication(s) Patie nt Instructions Prescription Expires Prescription Number Last Dispense Date Ordering Provider Order Date Order Qty Source ALLOPURINOL 100MG TAB TAKE ONE TABLET BY MOUTH EVERY DAY TO PREVENT GOUT FLARES - TAKE WITH A FULL GLASS OF WATER ORAL ACTIVE 10/07/2026 [id number] DOMO JEAN 2024 90 [facility] COLCHICINE 0.6MG TAB TAKE TWO TABLETS BY MOUTH ONCE FOR GOUT ATTACK - TAKE AN ADDITION AL TABLET 1 HOUR LATER. IF NO GOUT RESOLUTI ON IN 12 HOURS MAY TAKE ONE TABLET DAILY FOR 7 DAYS. - TAKE AN ADDITION AL TABLET 1 HOUR LATER. IF NO GOUT RESOLUTI ON IN 12 HOURS MAY TAKE ONE TABLET DAILY FOR 7 DAYS. ORAL 11/05/2025 [id number] DOMO JEAN 2024 20 [facility] COLCHICINE 0.6MG TAB TAKE TWO TABLETS BY MOUTH ONCE FOR GOUT ATTACK - TAKE AN ADDITION AL TABLET 1 HOUR LATER. IF NO GOUT RESOLUTI ON IN 12 HOURS MAY TAKE ONE TABLET DAILY FOR 7 DAYS. - TAKE AN ADDITION AL TABLET 1 HOUR LATER. IF NO GOUT RESOLUTI ON IN 12 HOURS MAY TAKE ONE TABLET DAILY FOR 7 DAYS. ORAL 06/16/2025 [id number] EMRE GREEN 2024 20 [facility] INDOMETHACI N 25MG CAP TAKE ONE CAPSULE BY MOUTH EVERY 8 HOURS FOR GOUT ORAL 06/16/2025 [id number] EMRE GREEN 2024 45 [facility] Allergies, Adverse Reactions, Alerts Combined list of allergies from Department of Defense and Veterans Affairs facilities. It does not include entries that were removed or entered in error. Substance Category Reaction Severity Reaction type Status Date Reported Comments Source No Known Allergies Drug allergy (disorder) active 10/01/2016 [facility] [place] Immunizations Combined list of available immunizations from the Department of Defense and Veterans Affairs facilities. Immunization Series Date Given Administered By Site Reaction Lot Number CVX Code Drug Drum Filler Status Comments Source COVID-19 (PFIZER), MRNA, LNP-S, PF, LUCAS-SUCROSE, 30 MCG/0.3 ML (AGES 12+ YEARS) 2023 309 complet ed HISTORICA L INFORMATI ON - FROM OTHER REGISTRY, [facility] INFLUENZA, SPLIT VIRUS, TRIVALENT, PF 2023 140 complet ed HISTORICA L INFORMATI ON - FROM OTHER REGISTRY, [facility] COVID-19 (PFIZER), MRNA, LNP-S, PF, LUCAS-SUCROSE, 30 MCG/0.3 ML (AGES 12+ YEARS) 1 2023 [place] LEFT DELTO ID [id number] 309 complet ed [facility] [place] [facility] [place], [facility] INFLUENZA, INJECTABLE, QUADRIVALENT, PRESERVATIVE FREE 2022 [place] RIGHT DELTO ID [id number] 150 complet ed Booster for Series, [facility] [place], [facility] COVID-19 (PFIZER), MRNA, LNP-S, BIVALENT, PF, 30 MCG/0.3 ML DOSE 3 2021 300 complet ed HISTORICA L INFORMATI ON - FROM OTHER REGISTRY, [facility] INFLUENZA, INJECTABLE, MDCK, PRESERVATIVE FREE, QUADRIVALENT 2021 171 complet ed HISTORICA L INFORMATI ON - FROM OTHER REGISTRY, [facility] COVID-19 (MODERNA), MRNA, LNP-S, PF, 100 MCG OR 50 MCG DOSE 3 2020 207 complet ed MOD; [id number]; 2 [facility] TDAP 1 2020 115 complet ed HISTORICA L INFORMATI ON - FROM OTHER REGISTRY, [facility] INFLUENZA, UNSPECIFIED FORMULATION 2020 88 complet ed [facility] INFLUENZA, INJECTABLE, QUADRIVALENT, PRESERVATIVE FREE 2020 150 complet ed HISTORICA L INFORMATI ON - FROM OTHER REGISTRY, [facility] COVID-19 (PFIZER), MRNA, LNP-S, PF, 30 MCG/0.3 ML DOSE 2 2020 208 complet ed HISTORICA L INFORMATI ON - FROM OTHER REGISTRY, [facility] COVID-19 (PFIZER), MRNA, LNP-S, PF, 30 MCG/0.3 ML DOSE 1 2020 208 complet ed HISTORICA L INFORMATI ON - FROM OTHER REGISTRY, [facility] INFLUENZA, INJECTABLE, MDCK, PRESERVATIVE FREE, QUADRIVALENT 2019 171 complet ed HISTORICA L INFORMATI ON - FROM OTHER REGISTRY, [facility] INFLUENZA, UNSPECIFIED FORMULATION 2019 88 complet ed [facility] Influenza, injectable, MDCK, preservative free, quadrivalent 2019 ARTEM, () Not Given Influenza , injectabl e, MDCK, preservat xavier free, quadrival ent DoD typhoid Vi capsular polysaccharid e vaccine 1 2019 [id number] [employer] (SEQ) comple t ed typhoid Vi capsular polysacch aride vaccine DoD influenza, injectable, quadrivalent, preservative free 2018 [id number], () Not Given influenza , injectabl e, quadrival ent, preservat xavier free DoD influenza, injectable, quadrivalent, contains preservative 1 2018 [id number] 158 Unknown (UNK) complet ed influenza , injectabl e, quadrival ent, contains preservat xavier DoD anthrax vaccine 4 2018 [id number] [employer] (MIP) complet ed anthrax vaccine DoD vaccinia (smallpox) vaccine 1 2018 [id number] (SUMMER) complet ed vaccinia (smallpox ) vaccine DoD influenza, injectable, quadrivalent, contains preservative 1 2017 [id number] 158 [employer] (SEQ) complet ed influenza , injectabl e, quadrival ent, contains preservat xavier DoD anthrax vaccine 3 2017 [id number] 24 [employer] (MIP) complet ed anthrax vaccine DoD meningococcal polysaccharid e (groups A, C, Y and W-135) diphtheria toxoid conjugate vaccine (MCV4P) 1 2017 [id number] Sanofi Pasteur (PMC) complet ed meningoco ccal polysacch aride (groups A, C, Y and W-135) diphtheri a toxoid conjugate vaccine (MCV4P) DoD anthrax vaccine 2 2016 [id number] 24 [employer] (MIP) complet ed anthrax vaccine DoD anthrax vaccine 1 2016 [id number] 24 [facility] [place] ([facility]) complet ed anthrax vaccine DoD typhoid Vi capsular polysaccharid e vaccine 1 2016 [id number] Sanofi Pasteur ([facility]) complet ed typhoid Vi capsular polysacch aride vaccine DoD Influenza, injectable, Madin Denise Canine Kidney, quadrivalent with preservative 1 2016 [id number] [employer] ([facility]) complet ed Influenza , injectabl e, Madin Denise Canine Kidney, quadrival ent with preservat xavier DoD hepatitis A vaccine, adult dosage 2 2016 PASTOR ESPARZA [id number] [facility] ([facility]) complet ed hepatitis A vaccine, adult dosage DoD poliovirus vaccine, inactivated 1 2016 [id number] Sanofi Pasteur ([facility]) complet ed polioviru s vaccine, inactivat ed DoD measles, mumps and rubella virus vaccine 2 2015 [id number] 03 Merck (MSD) complet ed measles, mumps and rubella virus vaccine DoD measles, mumps and rubella virus vaccine 1 2015 [id number] 03 Merck (MSD) complet ed measles, mumps and rubella virus vaccine DoD varicella virus vaccine 1 2015 UNK 21 Unknown (UNK) Not Given varicella virus vaccine DoD hepatitis B vaccine, adult dosage 1 2015 UNK 43 Unknown (UNK) Not Given hepatitis B vaccine, adult dosage DoD hepatitis A vaccine, adult dosage 1 2015 [id number] 52 [employer] ([facility]) complet ed hepatitis A vaccine, adult dosage DoD Influenza, seasonal, injectable 1 2015 [id number] 141 [employer] (SEQ) complet ed Influenza , seasonal, injectabl e DoD Adenovirus, type 4 and type 7, live, oral 1 2015 [id number] 143 [facility] (BRR) complet ed Adenoviru s, type 4 and type 7, live, oral DoD meningococcal polysaccharid e (groups A, C, Y and W-135) diphtheria toxoid conjugate vaccine (MCV4P) 1 2015 [id number] 114 [employer] ([facility]) complet ed meningoco ccal polysacch aride (groups A, C, Y and W-135) diphtheri a toxoid conjugate vaccine (MCV4P) DoD tetanus toxoid, reduced diphtheria toxoid, and acellular pertu is vaccine, adsorbed 1 2015 [id number] 115 Sanofi Pasteur ([facility]) complet ed tetanus toxoid, reduced diphtheri a toxoid, and acellular pertussis vaccine, adsorbed DoD INFLUENZA, SEASONAL, INJECTABLE 2014 141 complet ed HISTORICA L INFORMATI ON - FROM OTHER REGISTRY, [facility] Results Combined list of recent chemistry, hematology and other laboratory results from Department of Defense and Veterans Affairs, ranging from 15 months to all on record, depending upon the facility. Order Name Results Value Reference Range Date Interpretation Specimen Comments Source QUANTIFER ON-TB PANEL QUANTIFERON -TB GOLD Negative 10/04 Specimen Type: BLOOD Comment: A Negative result does not preclude the possibility of M. tuberculosi s infection or tuberculosi s disease: false-negat xavier results can be due to the stage of infection (e.g., specimen obtained prior to the development of cellular immune response or other immunologic al variables). Ordering Provider: JASON JEAN Report Released Date/Time: Oct 02, 2025 11:01 AM Reporting Lab: [address] [address] Performing Lab: [address] [phone] [place] [address] QUANTIFER ON-TB PANEL Nil 0.0663 [IU]/mL 10/04 Specimen Type: BLOOD Comment: A Negative result does not preclude the possibility of M. tuberculosi s infection or tuberculosi s disease: false-negat xavier results can be due to the stage of infection (e.g., specimen obtained prior to the development of cellular immune response or other immunologic al variables). Ordering Provider: JASON JEAN Report Released Date/Time: Oct 02, 2025 11:01 AM Reporting Lab: [address] [address] Performing Lab: [address] [address] [facility] QUANTIFER ON-TB PANEL Mitogen-Nil 9.9337 [IU]/mL 10/04 Specimen Type: BLOOD Comment: A Negative result does not preclude the possibility of M. tuberculosi s infection or tuberculosi s disease: false-negat xavier results can be due to the stage of infection (e.g., specimen obtained prior to the development of cellular immune response or other immunologic al variables). Ordering Provider: JASON JEAN Report Released Date/Time: Oct 02, 2025 11:01 AM Reporting Lab: [address] [address] Performing Lab: [address] [phone] [place] [address] QUANTIFER ON-TB PANEL TB1-Nil 0.0000 [IU]/mL 10/04 Specimen Type: BLOOD Comment: A Negative result does not preclude the possibility of M. tuberculosi s infection or tuberculosi s disease: false-negat xavier results can be due to the stage of infection (e.g., specimen obtained prior to the development of cellular immune response or other immunologic al variables). Ordering Provider: JASON JEAN Report Released Date/Time: Oct 02, 2025 11:01 AM Reporting Lab: [address] [address] Performing Lab: [phone] [place] [address] QUANTIFER ON-TB PANEL TB2-Nil 0.0013 [IU]/mL 10/04 Specimen Type: BLOOD Comment: A Negative result does not preclude the possibility of M. tuberculosi s infection or tuberculosi s disease: false-negat xavier results can be due to the stage of infection (e.g., specimen obtained prior to the development of cellular immune response or other immunologic al variables). Ordering Provider: JASON JEAN Report Released Date/Time: Oct 02, 2025 11:01 AM Reporting Lab: [address] [address] Performing Lab: [address] [phone] CHLAMYDIA AND GC, URINE PCR [LB] CHLAMYDIA SP DNA [PRESENCE] IN URINE BY YOKO WITH PROBE DETECTION NEGATIVE 07/11 Specimen Type: URINE (Spot) Comment: This test is intended as an aid in the diagnosis of chlamydial and gonococcal disease in both symptomatic and asymptomati c individuals and is FDA approved for self-collec chivo urine specimens, clinical collected endocervica l and vaginal sources. 08/13/2016: In-house validation performed on clinician-c ollected throat and anorectal sources. 07/14/23:In- house validation performed on patient self-collec chivo anorectal samples. 10/30/23:In- house validation performed on patient self-collec chivo throat samples. The analytical performance characteris tics of this assay have been determined by [facility] Molecular Pathology department. The modificatio ns have not been cleared or approved by the FDA. This assay has been validated pursuant to the CLIA regulations and is used for clinical purposes. This Chlamydia/G onococcus Test utilizes the Polymerase Chain Reaction (PCR) technology to detect Chlamydia trachomatis and Neisseria gonorrhoeae DNA in male and female urine; clinician-c ollected vaginal swabs; self-collec chivo (in a clinical setting) or clinician-c ollected: anorectal and throat swabs in judie PCR Media; and clinician-c ollected endocervica l swabs in judie PCR Media or PreservCyt solution. Ordering Provider: JASON JEAN Report Released Date/Time: Jul 10, 2025 01:56 PM Reporting Lab: [facility] [address] [facility] [address] Performing Lab: [facility] [address] [address] [facility] CHLAMYDIA AND GC, URINE PCR [LB] NEISSERIA GONORRHOEAE DNA [PRESENCE] IN URINE BY YOKO WITH PROBE DETECTION NEGATIVE 07/11 Specimen Type: URINE (Spot) Comment: This test is intended as an aid in the diagnosis of chlamydial and gonococcal disease in both symptomatic and asymptomati c individuals and is FDA approved for self-collec chivo urine specimens, clinical collected endocervica l and vaginal sources. 08/13/2016: In-house validation performed on clinician-c ollected throat and anorectal sources. 07/14/23:In- house validation performed on patient self-collec chivo anorectal samples. 10/30/23:In- house validation performed on patient self-collec chivo throat samples. The analytical performance characteris tics of this assay have been determined by [facility] Molecular Pathology department. The modificatio ns have not been cleared or approved by the FDA. This assay has been validated pursuant to the CLIA regulations and is used for clinical purposes. This Chlamydia/G onococcus Test utilizes the Polymerase Chain Reaction (PCR) technology to detect Chlamydia trachomatis and Neisseria gonorrhoeae DNA in male and female urine; clinician-c ollected vaginal swabs; self-collec chivo (in a clinical setting) or clinician-c ollected: anorectal and throat swabs in judie PCR Media; and clinician-c ollected endocervica l swabs in judie PCR Media or PreservCyt solution. Ordering Provider: JASON JEAN Report Released Date/Time: Jul 10, 2025 01:56 PM Reporting Lab: [facility] [address] [facility] [address] Performing Lab: [facility] [address] [address] [facility] HIV 1/2 SCREEN HIV 1+2 AB+HIV1 P24 AG [PRESENCE] IN SERUM OR PLASMA BY IMMUNOASSAY Non-Reac tive 07/11 Specimen Type: SERUM No comment entered. Ordering Provider: JASON JEAN Report Released Date/Time: Jul 10, 2025 01:56 PM Reporting Lab: [facility] [id number] [place] [phone] Performing Lab: [facility] [id number] [place] [address] [facility] HEP A AB TOTAL HEPATITIS A VIRUS AB [PRESENCE] IN SERUM BY IMMUNOASSAY REACTIVE 07/11 Specimen Type: SERUM No comment entered. Ordering Provider: JASON JEAN Report Released Date/Time: Jul 10, 2025 01:56 PM Reporting Lab: [facility] [address] [facility] [address] Performing Lab: [facility] [id number] [place] [phone] [facility] HEPATITIS B SURFACE AB PANEL HEPATITIS B VIRUS SURFACE AB [PRESENCE] IN SERUM BY IMMUNOASSAY REACTIVE 07/11 Specimen Type: SERUM No comment entered. Ordering Provider: JASON JEAN Report Released Date/Time: Jul 10, 2025 01:56 PM Reporting Lab: [facility] [address] Performing Lab: [facility] [id number] [place] [address] [facility] HEPATITIS B SURFACE AB PANEL HEPATITIS B VIRUS SURFACE AB [UNITS/VOLU ME] IN SERUM >1000.00 m[IU]/mL 07/11 Specimen Type: SERUM No comment entered. Ordering Provider: JASON JEAN Report Released Date/Time: Jul 10, 2025 01:56 PM Reporting Lab: [facility] [address] Performing Lab: [facility] [address] [facility] HEP B SURFACE AG HEPATITIS B VIRUS SURFACE AG [PRESENCE] IN SERUM OR PLASMA BY IMMUNOASSAY Non-Reac tive 07/11 Specimen Type: SERUM No comment entered. Ordering Provider: JASON JEAN Report Released Date/Time: Jul 10, 2025 01:56 PM Reporting Lab: [facility] [address] Performing Lab: [facility] [address] [facility] HEP C AB, TOTAL HEPATITIS C VIRUS AB [PRESENCE] IN SERUM Non-Reac tive 07/11 Specimen Type: SERUM No comment entered. Ordering Provider: JASON JEAN Report Released Date/Time: Jul 10, 2025 01:56 PM Reporting Lab: [facility] [place] [id number] [facility] Performing Lab: [facility] [address] [facility] HEPATITIS B CORE Ab HEPATITIS B VIRUS CORE AB [PRESENCE] IN SERUM OR PLASMA BY IMMUNOASSAY Non-Reac tive 07/11 Specimen Type: SERUM No comment entered. Ordering Provider: JASON JEAN Report Released Date/Time: Jul 10, 2025 01:56 PM Reporting Lab: [address] [address] Performing Lab: [facility] [address] [facility] RPR/PPAT- TP TREPONEMA PALLIDUM AB [PRESENCE] IN SERUM canc 07/11 Specimen Type: SERUM No comment entered. Ordering Provider: JASON JEAN Report Released Date/Time: Jul 10, 2025 01:56 PM Reporting Lab: [address] Performing Lab: [address] [address] [facility] RPR/PPAT- TP REAGIN AB [PRESENCE] IN SERUM BY RPR N 07/11 Specimen Type: SERUM No comment entered. Ordering Provider: JASON JEAN Report Released Date/Time: Jul 10, 2025 01:56 PM Reporting Lab: [address] [address] Performing Lab: [address] [address] [facility] VITAMIN D TOTAL 25-HYDROXYV ITAMIN D3 [MASS/VOLUM E] IN SERUM OR PLASMA 23.2 ng/mL 30.0 07/11 Specimen Type: SERUM Comment: Vitamin D Status: Deficiency: <10 ng/mL Insufficien cy: 10-30 ng/mL Sufficiency : 30-100 ng/mL Toxicity: >100 ng/mL Ordering Provider: JASON JEAN Report Released Date/Time: May 30, 2025 12:03 PM Reporting Lab: [facility] [address] [facility] [address] Performing Lab: [facility] [address] [facility] [address] [facility] Vital Signs Combined list of inpatient and outpatient Vital Signs from Department of Defense and Veterans Affairs, ranging from 12 months to all on record, depending upon the facility. Vital Sign Value Date Comments Source SYSTOLIC BLOOD PRESSURE 114 06/01/2025 12:48:02 [facility] DIASTOLIC BLOOD PRESSURE 80 06/01/2025 12:48:02 [facility] PULSE OXIMETRY 94 % 06/01/2025 12:48:02 [facility] WEIGHT 200 06/01/2025 12:48:02 [facility] BMI 32 kg/m2 06/01/2025 12:48:02 [facility] PAIN 1 06/01/2025 12:48:02 [facility] TEMPERATURE 98.7 06/01/2025 12:48:02 [facility] PULSE 70 06/01/2025 12:48:02 [facility] RESPIRATION 14 06/01/2025 12:48:02 [facility] SYSTOLIC BLOOD PRESSURE 151 05/17/2025 10:36:04 [facility] DIASTOLIC BLOOD PRESSURE 91 05/17/2025 10:36:04 [facility] PULSE OXIMETRY 100 % 05/17/2025 10:36:04 [facility] WEIGHT 210.5 05/17/2025 10:36:04 [facility] BMI 34 kg/m2 05/17/2025 10:36:04 [facility] PAIN 10 05/17/2025 10:36:04 [facility] TEMPERATURE 98.7 05/17/2025 10:36:04 [facility] PULSE 60 05/17/2025 10:36:04 [facility] RESPIRATION 18 05/17/2025 10:36:04 [facility] SYSTOLIC BLOOD PRESSURE 138 05/16/2025 06:28:37 [facility] DIASTOLIC BLOOD PRESSURE 93 05/16/2025 06:28:37 [facility] PULSE OXIMETRY 97 % 05/16/2025 06:28:37 [facility] WEIGHT 206 05/16/2025 06:28:37 [facility] BMI 33 kg/m2 05/16/2025 06:28:37 [facility] PAIN 7 05/16/2025 06:28:37 [facility] HEIGHT 66 05/16/2025 06:28:37 [facility] TEMPERATURE 97 05/16/2025 06:28:37 [facility] PULSE 77 05/16/2025 06:28:37 [facility] RESPIRATION 18 05/16/2025 06:28:37 [facility] Encounters Combined list of: 1) Encounters from Department of Veterans Affairs facilities going backup to the last 18 months, not all VA inpatient encounters are included; 2) Encounters from the Department of Defense facilities going backup to 280 months. Location Location Details Encounter Type Encounter Number Reason For Visit Attending Provider ADM Date DC Date Status Disposition Source [facility] [place] [place] [id number] Notes Entered by: ANETA JHA 12 Sep 2016 0754 ------- ------- ------- ------- -- hearing test ANETA JHA 09/12 [place]ased w[place]o Limitations [place] [place] [place] [place] [facility] [place]IENT [id number] PATRICIA ONEIL 09/12 [place]ased [place]/o Limitations [place] [place] [facility] [facility] [place] [id number] Notes Entered by: RADHA LUNA RA 18 Sep 2016 1010 ------- ------- ------- ------- -- IMM SONI DEE 09/18 [place]o Limitations [place] [place] [facility] [place] OUT[place] [id number] Notes Entered by: Jacquelyn GOMEZ 01 Oct 2016 0635 ------- ------- ------- ------- -- EYE L eye CELESTE Coleman 10/01 Sick at Home/Qu[place] [facility] [place] [facility] [place] OUTPATIENT [id number] Notes Entered by: NICOLE BROWN 11 Nov 2016 0801 ------- ------- ------- ------- -- imm SAL GOLD 11/11 Released w/o Limitations [place] [place] [id number] Notes Entered by: Jacquelyn GOMEZ 05 Dec 2016 0651 ------- ------- ------- ------- -- EYE f/u on pink eye KRIS RESENDEZ 12/05 [facility] w/o Limitations [facility] [place] [place] [place] OUTPATIENT [id number] Notes Entered by: Alcon FALCON 15 Jan 2017 1209 ------- ------- ------- ------- -- JASMINA Queen 01/15 Released w/o Limitations [facility] [place] [place]) OUTPATIENT [id number] Notes Entered by: Ivon TAYLOR 26 Jan 2017 0934 ------- ------- ------- ------- -- [facility] MYKE العلي 01/26 Released w/o Limitations [facility]) [facility] [place]) OUTPATIENT [id number] Notes Entered by: KRIS PEDERSON 24 Mar 2017 1118 ------- ------- ------- ------- -- PASTOR Cadet 03/24 Released w/o Limitations [facility] [place]) [facility] OUTPATIENT [id number] Annual BURTON GOMEZ 08/13 Released w/o Limitations [facility] ) [facility]) OUTPATIENT [id number] Notes Entered by: Benedicto MOLINA 03 Sep 2017 1242 ------- ------- ------- ------- -- Raymond PUGABROOKLYN Amanda AMARILIS 09/03 Released w/o Limitations [facility]) Theater Facility OUTPATIENT [id number] Theater Provider 11/13 Released with Work/Duty Limitations Theater Facilit [facility] Theater [facility] OUTPATIENT [id number] Theater Provider 12/08 Released with Work/Duty Limitations Theater [facility] OUTPATIENT [id number] Theater Provider 12/28 Released with Work/Duty Limitations Theater Facilit [facility] OUTPATIENT [id number] Theater Provider 01/25 Released w/o Limitations Theater Facilit y [facility] OUTPATIENT [id number] Annual BURTON GOMEZ 07/08 Released w/o Limitations [facility] ) [facility] [place]) TELE CONSULT [id number] Notes Entered by: CALLIE WYATT 26 Jan 2019 1114 ------- ------- ------- ------- -- KASANDRA - ANTONIO CASTELLANO 01/26 [facility] [place]) [facility](Phys ical Therapy [place]) OUTPATIENT [id number] Notes Entered by: JANIA RIGGS 30 Sep 2019 1206 ------- ------- ------- ------- -- JANIA Valverde 09/30 Released w/o Limitations [facility](Ph ysical Therapy [facility] ) [facility](Phys ical Therapy [facility]) OUTPATIENT [id number] Notes Entered by: JANIA RIGGS 05 Oct 2019 1723 ------- ------- ------- ------- -- JANIA Valverde 10/06 Released w/o Limitations [facility](Ph ysical Therapy [place] ) [facility](Phys ical Therapy [place]) OUTPATIENT [id number] Notes Entered by: JANIA RIGGS 07 Oct 2019 0554 ------- ------- ------- ------- -- JANIA Valverde 10/07 Released w/o Limitations [facility](Ph ysical Therapy [place] ) [facility] OUTPATIENT [id number] Annual BURTON GOMEZ 10/24 Released w/o Limitations [facility] ) [facility] [place]) OUTPATIENT [id number] 1 ets-neetuy ALEC Nguyen 01/03 Released w/o Limitations [facility] [place]) [facility] HC PRO PHONE CALL 5-10 MIN [id number] Diagnos is: ICD-10- CM F33.1 Major depress xavier disorde r, recurre nt, bangat e INDIGO GRANDE 06/07 [facility] Outpatient Encounter [id number] 08/15 [facility] Outpatient Encounter [id number] 08/15 [facility] HC PRO PHONE CALL 5-10 MIN [id number] Diagnos is: ICD-10- CM F33.1 Major depress xavier disorde r, recurre nt, moderat e STACIA LUONG 08/22 [facility] Outpatient Encounter [id number] 08/30 [facility] Outpatient Encounter [id number] 09/07 [facility] OFFICE O/P EST MOD 30 MIN [id number] Diagnos is: ICD-10- CM M10.9 Gout, unspeci fied Akin JEAN UIRLETTE 09/07 [facility] Outpatient Encounter [id number] 09/13 [facility] Outpatient Encounter [id number] 09/13 [facility] EMERGENCY DEPT VISIT SF MDM [id number] Diagnos is: ICD-10- CM R22.31 Localiz ed swellin g, mass and lump, right upper limb POWERS,MIGU EL E 05/16 [facility] EMERGENCY DEPT VISIT LOW MDM [id number] Diagnos is: ICD-10- CM M25.539 Pain in unspeci fied wrist PETER,AND REW 05/17 [facility] Outpatient Encounter [id number] POWERS,MIGU EL E 05/17 [facility] Outpatient Encounter [id number] 05/30 [facility] Outpatient Encounter [id number] 06/01 [facility] OFFICE O/P EST MOD 30 MIN [id number] Diagnos is: ICD-10- CM M10.9 Gout, unspeci fied Akin JEAN UIRLETTE 06/01 [facility] Outpatient Encounter [id number] 06/02 [facility] Outpatient Encounter [id number] 07/10 [facility] OFF/OP CNSLTJ NEW/EST MOD 40 [id number] Diagnos is: ICD-10- CM M25.531 Pain in right wrist TIESHA BARRIOS T 07/28 [facility] OFFICE O/P EST MOD 30 MIN [id number] Diagnos is: ICD-10- CM M25.569 Pain in unspeci fied knee TIESHA BARRIOS T 09/08 [facility] Outpatient Encounter [id number] 10/02 [facility] Outpatient Encounter [id number] 11/09 [facility] Procedures Combined list of: 1) Procedures from Department of Veterans Affairs facilities going back up to thelast 18 months, not all [place] non-surgical procedures are included; 2) All procedures from the Department of Defense facilities. Procedure Procedure Type Code Date Perfomer Comments Sourc e POLIOVIRUS VACCINE, INACTIVATED (IPV), FOR SUBCUTANEOUS OR INTRAMUSCULAR USE [facility] MEASLES, MUMPS AND RUBELLA VIRUS VACCINE (MMR), LIVE, FOR SUBCUTANEOUS USE [facility] INFLUENZA VIRUS VACCINE, TRIVALENT (IIV3), SPLIT VIRUS, 0.5 ML DOSAGE, FOR INTRAMUSCULAR USE [facility] SCREENING TEST OF VISUAL ACUITY, QUANTITATIVE, BILATERAL [facility] PURE TONE AUDIOMETRY (THRESHOLD), AUTOMATED; AIR ONLY [facility] PURE TONE AUDIOMETRY (THRESHOLD), AUTOMATED; AIR ONLY [facility] ATHLETIC TRAINING EVALUATION, LOW COMPLEXITY,REQ:HIST & PHYS ACT PROFILE W NO COMORB;EXAM AFF BODY AREA,ADDRESS 1-2 ELEMENTS;CLIN DEC ANGEL,LOW,TYP,15 MIN ARE SPENT [id number] W THE PATIENT &/FAMILY [facility] BRIEF EMOTIONAL/BEHAVIORAL ASSESSMENT (EG, DEPRESSION INVENTORY, ATTENTION-DEFICIT/HYP ERACTIVITY DISORDER [ADHD] SCALE), WITH SCORING AND DOCUMENTATION, PER STANDARDIZED INSTRUMENT [facility] PSYCHIATRIC EVALUATION OF HOSPITAL RECORDS, OTHER PSYCHIATRIC REPORTS, PSYCHOMETRIC AND/OR PROJECTIVE TESTS, AND OTHER ACCUMULATED DATA FOR MEDICALDIAGNOSTIC PURPOSES [facility] TELE ASSESS & MGT SRV PROV QUAL NONPHYS HLTH CARE PRO TO EST PAT,PARENT,GUARD NOT ORIG REL ASSESS & MGT SRV PROV W/IN PREV 7 DAYS NOR LEAD ASSESS & MGT SRV/PX W/IN NXT 24 HR/SOON APT;5-10 MIN MED DIS [facility] BRIEF EMOTIONAL/BEHAVIORAL ASSESSMENT (EG, DEPRESSION INVENTORY, ATTENTION-DEFICIT/HYP ERACTIVITY DISORDER [ADHD] SCALE), WITH SCORING AND DOCUMENTATION, PER STANDARDIZED INSTRUMENT [facility] BRIEF EMOTIONAL/BEHAVIORAL ASSESSMENT (EG, DEPRESSION INVENTORY, ATTENTION-DEFICIT/HYP ERACTIVITY DISORDER [ADHD] SCALE), WITH SCORING AND DOCUMENTATION, PER STANDARDIZED INSTRUMENT [facility] BRIEF EMOTIONAL/BEHAVIORAL ASSESSMENT (EG, DEPRESSION INVENTORY, ATTENTION-DEFICIT/HYP ERACTIVITY DISORDER [ADHD] SCALE), WITH SCORING AND DOCUMENTATION, PER STANDARDIZED INSTRUMENT [facility] BRIEF EMOTIONAL/BEHAVIORAL ASSESSMENT (EG, DEPRESSION INVENTORY, ATTENTION-DEFICIT/HYP ERACTIVITY DISORDER [ADHD] SCALE), WITH SCORING AND DOCUMENTATION, PER STANDARDIZED INSTRUMENT [facility] BRIEF EMOTIONAL/BEHAVIORAL ASSESSMENT (EG, DEPRESSION INVENTORY, ATTENTION-DEFICIT/HYP ERACTIVITY DISORDER [ADHD] SCALE), WITH SCORING AND DOCUMENTATION, PER STANDARDIZED INSTRUMENT [facility] BRIEF EMOTIONAL/BEHAVIORAL ASSESSMENT (EG, DEPRESSION INVENTORY, ATTENTION-DEFICIT/HYP ERACTIVITY DISORDER [ADHD] SCALE), WITH SCORING AND DOCUMENTATION, PER STANDARDIZED INSTRUMENT [facility] BRIEF EMOTIONAL/BEHAVIORAL ASSESSMENT (EG, DEPRESSION INVENTORY, ATTENTION-DEFICIT/HYP ERACTIVITY DISORDER [ADHD] SCALE), WITH SCORING AND DOCUMENTATION, PER STANDARDIZED INSTRUMENT [facility] BRIEF EMOTIONAL/BEHAVIORAL ASSESSMENT (EG, DEPRESSION INVENTORY, ATTENTION-DEFICIT/HYP ERACTIVITY DISORDER [ADHD] SCALE), WITH SCORING AND DOCUMENTATION, PER STANDARDIZED INSTRUMENT [facility] BRIEF EMOTIONAL/BEHAVIORAL ASSESSMENT (EG, DEPRESSION INVENTORY, ATTENTION-DEFICIT/HYP ERACTIVITY DISORDER [ADHD] SCALE), WITH SCORING AND DOCUMENTATION, PER STANDARDIZED INSTRUMENT [facility] BRIEF EMOTIONAL/BEHAVIORAL ASSESSMENT (EG, DEPRESSION INVENTORY, ATTENTION-DEFICIT/HYP ERACTIVITY DISORDER [ADHD] SCALE), WITH SCORING AND DOCUMENTATION, PER STANDARDIZED INSTRUMENT [facility] PURE TONE AUDIOMETRY (THRESHOLD), AUTOMATED; AIR ONLY [facility] TYPHOID VACCINE, CAPSULAR POLYSACCHARIDE (VICPS), FOR INTRAMUSCULAR USE [facility] PURE TONE AUDIOMETRY (THRESHOLD), AUTOMATED; AIR ONLY [facility] IMMUNIZATION ADMINISTRATION (INCLUDES PERCUTANEOUS, INTRADERMAL, SUBCUTANEOUS, OR INTRAMUSCULAR INJECTIONS); 1 VACCINE (SINGLE OR COMBINATION VACCINE/TOXOID) 017 [facility] Psychometric Emotional / Behavioral A e ment Psychometric Emotional / Behavioral Assessment [id number] 018 THERESA LARSON [facility] Clinical Social Work Individual Outpatient Counseling 60 Minutes Clinical Social Work Individual Outpatient Counseling 60 Minutes [id number] 018 THERESA LARSON [facility] Psychometric Emotional / Behavioral A e ment Psychometric Emotional / Behavioral Assessment 18293 018 HARVEY PACHECO [facility] Psychiatric Diagnostic Evaluation Psychiatric Diagnostic Evaluation [id number] 018 HARVEY PACHECO [facility] Threshold Audiogram (Pure Tone) Automated Threshold Audiogram (Pure Tone) Automated 0208T 018 BURTON GOMEZ [facility] Physical Therapy: ___ Se ion Segments, 15 Minutes Each Physical Therapy: ___ Session Segments, 15 Minutes Each 79370 017 Theater Provider [facility] Typhoid Vaccine Vi Capsular Polysaccharide, For Intramus Use Typhoid Vaccine Vi Capsular Polysaccharide, For Intramus Use 46468 017 BROOKLYN MICHELLE [facility] Influenza Split Virus Vaccine IM W/ Preserv Trivalent 0.50mL Dosage Influenza Split Virus Vaccine IM W/ Preserv Trivalent 0.50mL Dosage 17162 [place]OOK[place] MICHELLE [facility] Anthrax Vaccine, For Intramuscular Use Anthrax Vaccine, For Intramuscular Use 37692 017 BROOK[place] MICHELLE [facility] Threshold Audiogram (Pure Tone) Automated Threshold Audiogram (Pure Tone) Automated 0208T 017 BURTON GOMEZ [facility] Hepatitis A Vaccine Adult Dosage (Intramuscular Use) Hepatitis A Vaccine Adult Dosage (Intramuscular Use) 89644 017 PASTOR ROBLES Hep A (Adult); Series #: 2; 1.0 mL; IM; Right Arm; [facility]: [employer]; Lot: [id number]; VIS given (Myra: 06/11/2016). [facility] Immunization Administration By Injection, One Vaccine Immunization Administration By Injection, One Vaccine 57543 017 PASTOR ROBLES [facility] Vaccines Viral Polio, Inactivated Vaccines Viral Polio, Inactivated 29786 RANJANSHANTANU [facility] Immunization Administration By Injection, One Vaccine Immunization Administration By Injection, One Vaccine 12418 SHANTANU WOODRUFF [facility] Vaccines Viral Measles, Mumps and Rubella, Live Vaccines Viral Measles, Mumps and Rubella, Live 69828 [facility] Immun[facility] Administration By Injection, One Vaccine Immunization Administration By Injection, One Vaccine 49366 [facility] Immunization Administration By Injection, Each Additional Vaccine Immunization Administration By Injection, Each Additional Vaccine 38106 SONI BARTON [facility] Tdap Vaccine Tdap Vaccine 70309 SONI BARTON Visit for an IM injection of 0.5mL of Boostrix (Tetanus and Diphtheria Toxoids and Acellular Pertussis). Was given in the Right Deltoid. Patient was observed for 15 min with no adverse reactions. [facility] Meningococcal Polysaccharide Diphtheria Toxoid Conjugate Vaccine SONI BARTON Visit for an IM injection of 0.5mL of Meningococcal Vaccine (Menactra). Was given in the Left Deltoid. Patient was observed for 15 min with no adverse reactions. [facility] Hepatitis A Vaccine Adult Dosage (Intramuscular Use) Hepatitis A Vaccine Adult Dosage (Intramuscular Use) 16766 SONI BARTON Visit for an IM injection of 1mL of Hepatitis A (Havrix). Was given in the Right Deltoid. Patient was observed for 15 min with no adverse reactions. [facility] Vaccines Viral Measles, Mumps and Rubella, Live Vaccines Viral Measles, Mumps and Rubella, Live 88283 SONI BARTON Visit for a SQ injection of 0.5mL of MMR (Measles, Mumps, and Rubella). Was given in the Right Tricep. Patient was observed for 15 min with no adverse reactions DoD Immunization Admin Intranasal / Oral Each Additional Vaccine Immunization Admin Intranasal / Oral Each Additional Vaccine 08927 SONI BARTON [facility] Vaccines Adenovirus Type 4 Live, For Oral Use Vaccines Adenovirus Type 4 Live, For Oral Use 13856 016 SONI BARTON A single vaccine dose adminstered orally. [facility] Vaccines Adenovirus Type 7 Live, For Oral Use Vaccines Adenovirus Type 7 Live, For Oral Use 69019 016 SONI BARTON A single vaccine dose adminstered orally. [facility] Immunization Administration By Injection, One Vaccine Immunization Administration By Injection, One Vaccine 35712 016 SONI BARTON [facility] Influenza Split Virus Vaccine 0.5mL Dosage Intramuscular SONI BARTON Flu vaccine: Administer 0.5mL injected in the left deltoid muscle intramuscularly. Patient was observed for 15 min with no adverse reactions [facility] Screening Test Of Visual Acuity, Quantitative, Bilateral Screening Test Of Visual Acuity, Quantitative, Bilateral 15834 016 PATRICIA ONEIL [facility] Threshold Audiogram (Pure Tone) Automated Threshold Audiogram (Pure Tone) Automated 0208T 016 ANETA JHA [facility] Clinical Social Work Individual Outpatient Counseling 60 Minutes Clinical Social Work Individual Outpatient Counseling 60 Minutes 28215 THERESA LARSON [facility] Psychometric Emotional / Behavioral A e ment Psychometric Emotional / Behavioral Assessment 62243 THERESA LARSON [facility] Non-Physician Phone Call To Patient/Provider Brief (5-10min) Non-Physician Phone Call To Patient/Provider Brief (5-10min) 35555 ANTONIO MOLINA [facility] Psychotherapy Individual Approximately 60 Minutes Psychotherapy Individual Approximately 60 Minutes 31357 RAND COTTON [facility] Psychiatric Diagnostic Evaluation Review of Records and Reports Psychiatric Diagnostic Evaluation Review of Records and Reports 58191 RAND COTTON [facility] Athletic Training Evaluation Low Complexity Athletic Training Evaluation Low Complexity 89269 JANIA RIGGS [facility] Threshold Audiogram (Pure Tone) Automated Threshold Audiogram (Pure Tone) Automated 0208T BURTON GOMEZ [facility] Social History Combined list of available smoking, tobacco, and other social history from Department of Defense and Veterans Affairs facilities. Social History Type Response Date Comment [facility] e Tobacco smoking status NHIS VA-TOBACCO NEVER USED CIGARETTES 06/01/2025 [facility] History of tobacco use [place]-TOBACCO NEVER USED OTHER TYPE 06/01/2025 [facility] History of tobacco use [place]-TOBACCO NEVER USED 10/09/2023 [facility] History of tobacco use [place]-TOBACCO NEVER USED 01/02/2023 [facility] [place] [facility] [place] of tobacco use NEGATIVE TOBACCO SCREEN (INPT) 12/13/2022 [facility] History of tobacco use [place]-TOBACCO NEVER USED 10/25/2021 [facility] History of tobacco use [place]-TOBACCO NEVER USED 07/24/2020 [facility] This section is an empty social history section. [facility] Plan of Care List of future care activities from Department of Veterans Affairs facilities. Additional future care activities may be listed in the Assessment and Plan section. Date/Time Care Activity Care Activity Detail Facili ty 11/30/2025 AMBULATORY - MEDICINE AMBULATORY - MEDICI NE [facility] Advance Directives List of completed, amended, or rescinded Advance Directives on record at Department of Veterans Affairs facilities. An actual copy of the Directive is not included. Date Advance Directive Provider Source 12/13/2022 ADVANCE DIRECTIVE DISCUSSION LAMBERTO TAMAYO [facility] 01/31/2020 ADVANCE DIRECTIVE DISCUSSION ALEXUS ROSSI [facility]
--- OUTSIDE RECORDS SUMMARY | 2025-11-17 23:58 | XMS_ITS | Clinical Summary ---
Author Organization [facility] Address [address] [place] [address] Phone Care Team Providers Care Test Fixture Assembler Name Role Phone Pcp, No Primary Care Provider Unavailabl e Source Comments The [employer] EMR is fully implemented at [facility] across theentire continuum of care.[facility] Allergies No known active allergies Medications * Always verify current medications with the patient. colchicine, gout, (COLCRYS) 0.6 mg tablet Take 1 tablet by mouth daily. 12 tablet 3 Active indomethacin (INDOCIN) 25 mg capsule Take 1 capsule by mouth every 8 hours as needed for Pain. 24 capsule 3 Active HYDROcodone-ac etaminophen (NORCO) 10-325 mg tablet Take 0.5 tablets by mouth every 6 hours as needed for Pain. Max dose of acetaminophen is 3000 mg from all sources in 24 hours. 7 tablet 3 Active Social History Tobacco Use Types Packs/Day Years Used Date Smoking Tobacco: Never Assessed Sex and Gender Information Value Date Recorded Sex Assigned at Not on file Legal Sex Male 8:46 AM PDT Gender Identity Not on file Sexual Orientation Not on file Last Filed Vital Signs Vital Sign Reading Time Taken Comments Blood Pressure 136/90 08/28/2023 1:26 PM PDT Pulse 56 08/28/2023 1:26 PM PDT Temperature 36.5 C (97.7 F) 08/28/2023 1:26 PM PDT Respiratory Rate 18 08/28/2023 1:26 PM PDT Oxygen Saturation 99% 08/28/2023 1:26 PM PDT Inhaled Oxygen Concentration - - Weight - - Height 167.6 cm (5' 6 ) 08/28/2023 8:56 AM PDT Body Mass Index - - Plan of Treatment Health Maintenance Due Date Last Done Comments Hep C Screening 1990 Depression Assessment (PHQ 2-9 / PHQ A / EPDS) 2002 Hepatitis B Vaccine (1 of 3 - 19+ 3-dose series) 2009 COVID-19 Vaccination (SARS-CoV-2) ( season) 2025 10/25/2021, 02/18/2021, 01/28/2021 Influenza Vaccine (#1) 2025 2, 08/30/2021, 08/28/2020, Additional history exists DTaP,Tdap,and Td Vaccines (3 - Td or Tdap) 10/25/2031 10/25/2021, 09/11/2016 Orthopoxvirus (Monkeypox) Completed 12/09/2018 Pneumococcal Peds and High-Risk Adults Aged Out No longer eligible based on patient's age to complete this topic Insurance [facility] [place] [address] Advance Directives For more information, please contact: [phone] Healthcare Agents on File Name Relationship Healthcare Agent Relationshi p Communication Samara Canales Mother 4. Emergency Con tact Only - Only Share Emergent Health Information Care Teams Test Fixture Assembler Relationship Specialty Start Date End Date Pcp, No PCP - General 08/28/23
--- OUTSIDE RECORDS SUMMARY | 2025-11-17 23:58 | XMS_ITS | Clinical Summary ---
Author Organization [facility] Address [address] [place] [address] Care Team Providers Care Hotel Housekeeper Name Role Phone Unavailable Primary Care Provider Unavailabl e Source Comments NOTE: The information displayed by Care Everywhere is extracted from the complete medical record and may not identify all current or past patient conditions.[facility] Allergies No known active allergies Medications Colchicine (COLCRYS) 0.6 mg Oral TabIndications: GOUT Take 2 tablets by mouth one time at the first sign of gout flare, followed by 1 tablet 1 hour later. If no relief after 12 hours, may take 1 tablet daily or 2 times a day as needed for up to 3 days until gout flare resolves 18 tablet 05/22/2025 3:30 PM PDT 05/22/2025 05/22/20 27 Active Indomethacin (INDOCIN) 25 mg Oral CapIndications: GOUT Take 1 capsule by mouth every 8 hours as needed (gout pain) 30 capsule 05/22/2025 3:30 PM PDT 05/22/2025 05/22/20 27 Active Allopurinol (ZYLOPRIM) 100 mg Oral TabIndications: GOUT Take 2 tablets by mouth daily 100 tablet 05/22/2025 05/22/20 27 Active Active Problems Problem Noted Date Diagnosed Date ELEVATED BP READING WO HTN DIAGNOSIS 05/22/2025 GANGLION CYST OF BILAT ELBOWS 04/20/2025 GOUT OF RIGHT KNEE 04/20/2025 GANGLION CYST OF RIGHT WRIST 04/20/2025 ALLERGIC RHINITIS 08/15/2024 SNORING 08/15/2024 SICKLE CELL TRAIT 08/15/2024 HEMORRHOID, UNSPECIFIED 08/15/2024 HX OF DEPRESSION 08/12/2024 ADULT OBSTRUCTIVE SLEEP APNEA 08/12/2024 GOUT 08/12/2024 Overview (08/15/2024): Left knee MAJOR DEPRESSIVE DISORDER, RECURRENT EPISODE UNSPECIFIED ANXIETY 08/12/2024 ADJUSTMENT DISORDER W DEPRESSED MOOD 12/08/2017 Immunizations Immunization Administration Dates Next Due ADE4,7 (Adenovirus, type 4 a nd 7, live) oral 09/15/2016 JENNI Anthrax (Biothrax), pre- exposure prophylaxis, post-exposure prophylaxis 12/09/2018,04/07/2018,10/31/2017,09/03 COVID-19 Moderna, External Administration 10/25/2021 COVID-19 mRNA, PF, () 12yrs-adult (Pfizer), 30 mcg/0.3mL 08/15/2024 HAV adult (Hepatitis A) 03/24/2017,09/15/2016 INF (Influenza) unspecified formulation 08/30/2021 INFS 4yrs-adult (Flucelvax quadrivalent) (influenza) 09/03/2017 INFS Pres Free (quadrivalent ) (influenza) 10/18/2023,08/11/2021 INFS pres free 6mos-adult (F lucelvax quadrivalent) (influenza) 09/10/2022,08/28/2020 INFS pres free 6mos-adult (F lulaval trivalent) (influenza) 08/15/2024 INFS with preservative, triv alent (influenza) seasonal unspecified 09/15/2016,10/01/2015 INFs (Quadrivalent) (Influenza) 10/11/2019,10/08 MENcnACWY (Meningococcal con jugate, groups ACWY-135) 01/12/2018,09/11/2016 MMR (Measles, Mumps, Rubella ), unspecified formulation 11/11/2016,09/15/2016 SURAJ-IPV (Polio, Inactivated virus) 01/15/2017 SMA (Smallpox) vaccine ([id number]) 12/09/2018 TB-PPD, (TB skin test) 09/03/2024 TYDvi (Typhoid, ViCPs) 12/08/2019,09/03/2017 Tdap (Tetanus, diphtheria, a cellular pertussis) 10/25/2021,09/11/2016 Family History Medical History Relation Comments vitilgo Father Melanoma Maternal Grandfather Melanoma Mother Colon Cancer None Prostate Cancer None Relation Status Comments Father Alive Maternal Grandfather Mother Alive Social History Tobacco Use Types Packs/Day Years Used Date Smoking Tobacco: Never Passive Smoke Exposure: Never Smokeless Tobacco: Never Tobacco Cessation:Counseling Given: Not Answered Sex and Gender Information Value Date Recorded Sex Assigned at Not on file Legal Sex Male 2:01 PM PST Gender Identity Not on file Sexual Orientation Not on file Last Filed Vital Signs Vital Sign Reading Time Taken Comments Blood Pressure 142/89 05/22/2025 2:00 PM PDT Pulse 83 05/22/2025 2:00 PM PDT Temperature 36.9 C (98.4 F) 05/22/2025 1:57 PM PDT Respiratory Rate 18 04/20/2025 6:15 PM PDT Oxygen Saturation 98% 05/16/2025 4:15 PM PDT Inhaled Oxygen Concentration - - Weight 95.7 kg (211 lb) 05/22/2025 1:57 PM PDT Height 167.6 cm (5' 6 ) 05/22/2025 1:57 PM PDT Body Mass Index 34.06 05/22/2025 1:57 PM PDT Plan of Treatment Health Maintenance Due Date Last Done Comments IMM COVID-19 (5 YRS AND OLDE R) (2024- season) 2025 08/15/2024, 03/14/2024, 10/25/2021, Additional history exists IMM INFLUENZA (6 MO AND OLDE R) (#1) 07/24/2025 08/15/2024, 10/18/2023, 09/10/2022, Additional history exists IMM DTAP,TDAP,TD (42 DAYS-12 0 YRS) (3 - Td or Tdap) 10/25/2031 10/25/2021, 09/11/2016
[2025-11-18 01:13] VITALS: BP 128/89; PULSE 66; RESP 16; TEMP 36.4; O2SAT 96
[2025-11-18] MEDS: iohexoL 350 MG/ML 100 ML INFUS..BTL 85 ML IV (02:00)
[2025-11-18 03:40] LABS: Appearance Urine Clear; Glucose Urine UA Negative (Negative); PH 5.5 (5.0-9.0); Specific Gravity - Urine >= 1.030 (1.005-1.025); UMIC TRIGGER UACC YES
[2025-11-18 04:47] VITALS: BP 130/103; PULSE 73; RESP 18; TEMP 36.6; O2SAT 99
[2025-11-18 04:48] VITALS: BP 139/103
[2025-11-18 05:06] VITALS: BP 139/103; PULSE 73; RESP 18; TEMP 36.6; O2SAT 99
== END 2025-11-18 05:07 | disposition home or self-care (01) ==
PROVIDERS: Physician Assistant; Emergency Provider Emergency Medicine
DX: A08.4 Viral intestinal infection, unspecified (principal); M10.9 Gout, unspecified; Z79.899 Other long term (current) drug therapy
CPT/HCPCS: 36415; 74177; 80048; 80076; 81001; 83690; 83735; 85025; 96360; 99284; 99285; Q9967

== ENCOUNTER → 2025-11-18 00:01 | Outpatient (BNV) | payer OTHER, SELFPAY | PROVIDERS: Emergency Provider Emergency Medicine; Visit Provider Radiology Diagnostic Radiology | DX: R10.84 Generalized abdominal pain (principal) | CPT/HCPCS: 74177 ==